=== PATIENT | male | born 1975 | race Hispanic/Latino ===

== ENCOUNTER 2021-04-14 12:43 | Inpatient (IN) | payer OTHER ==
[2021-04-14] MEDS ORDERED: THIAMINE 100 MG, FOLIC ACID 1 MG, MULTIPLE VITAMIN INJ, ADULT 10 ML in SODIUM CHLORIDE ... IV ONE (13:13)
--- NOTE | 2021-04-14 13:27 | Emergency Department Report ---
HPI - General Chief Complaint: Psych Time Seen by Provider: 04/14/21 12:54 - HPI HPI: 45-year-old male presents to the emergency department with complaint of depression, suicidal ideations and a suicide attempt. The patient says that he wrapped cellophane around his neck and tied it to something and jumped off with the intent of hanging himself but the cellophane broke. He complains only of very mild neck soreness. No change in voice, difficulty swallowing, shortness of breath. Patient also says that he is going through alcohol withdra wal. He has a history of alcohol dependence for the past 15 years. His last drink was yesterday. He complains of some nausea, tremors, agitation. He tried to quit one time previously but said that he had an alcohol withdrawal seizure at that time. ED Review of Systems ROS: Stated complaint: SUICIDAL ATTEMPT Other details as noted in HPI Comment: All other systems reviewed and negative Constitutional: denies: chills, fever Eyes: denies: eye pain, vision change ENT: denies: ear pain, throat pain Respiratory: denies: cough, shortness of breath Cardiovascular: denies: chest pain, palpitations Gastrointestinal: nausea. denies: abdominal pain Genitourinary: denies: dysuria, discharge Musculoskeletal: denies: back pain, arthralgia Skin: denies: rash, lesions Neurological: other (tremors). denies: headache Psychiatric: anxiety, depression, suicidal thoughts Physical Exam - Physical Exam Vital Signs: Vital Signs 04/14/21 13:10 Temperature 99.0 F Physical Exam: GENERAL: The patient is ill-appearing. The patient appears extremely anxious. HENT: Normocephalic. Atraumatic. Patient has moist mucous membranes. Oropharynx is clear. No hoarse or hot potato voice. EYES: Extraocular motions are intact. NECK: Supple. Trachea is midline. No ecchymosis or ligature mosley seen. CHEST/LUNGS: Clear to auscultation. There is no respiratory distress noted. HEART/CARDIOVASCULAR: Regular. There is mild tachycardia. There is no murmur. ABDOMEN: Abdomen is soft, nontender. Patient has normal bowel sounds. SKIN: Skin is warm and dry. NEURO: The patient is awake, alert, and oriented. The patient is cooperative. The patient has no focal neurologic deficits. Normal speech. Patient has moderate to severe bilateral upper extremity tremors. MUSCULOSKELETAL: There is no tenderness or deformity. There is no limitation range of motion. ED Course Vital Signs 04/14/21 13:10 Temperature 99.0 F ED Medical Decision Making - Lab Data Result diagrams: 04/14/21 12:58 12 12:58 Lab Results 04/14/21 12 12 Range/Units 12:58 12:58 12:58 WBC 6.2 (4.5-11.0) K/mm3 RBC 4.26 (3.65-5.03) M/mm3 Hgb 13.4 (11.8-15.2) gm/dl Hct 40.5 (35.5-45.6) % MCV 95 H (84-94) fl MCH 31 (28-32) pg MCHC 33 (32-34) % RDW 13.2 (13.2-15.2) % Plt Count 185 (140-440) K/mm3 Lymph % (Auto) 21.1 (13.4-35.0) % Martin % (Auto) 7.3 (0.0-7.3) % Eos % (Auto) 6.3 H (0.0-4.3) % Baso % (Auto) 0.8 (0.0-1.8) % Lymph # (Auto) 1.3 (1.2-5.4) K/mm3 Martin # (Auto) 0.5 (0.0-0.8) K/mm3 Eos # (Auto) 0.4 (0.0-0.4) K/mm3 Baso # (Auto) 0.1 (0.0-0.1) K/mm3 Seg Neutrophils % 64.5 (40.0-70.0) % Seg Neutrophils # 4.0 (1.8-7.7) K/mm3 Sodium 140 (137-145) mmol/L Potassium 4.1 (3.6-5.0) mmol/L Chloride 100.4 (98-107) mmol/L Carbon Dioxide 30 (22-30) mmol/L Anion Gap 14 mmol/L BUN 9 (9-20) mg/dL Creatinine 0.6 L (0.8-1.3) mg/dL Estimated GFR > 60 ml/min BUN/Creatinine Ratio 15 % Glucose 94 (75-100) mg/dL Calcium 8.8 (8.4-10.2) mg/dL Plasma/Serum Alcohol < 0.01 (0-0.07) % - Medical Decision Making This patient presents with suicidal ideations and an attempt in which he wrapped cellophane around his neck and tried to hang himself. However the cellophane broke. I do not see any significant ecchymosis or any ligature mosley around the neck. The patient does not have any drooling, trismus, change in voice. For this reason the patient has been made a 1013 and placed on an ED hold. The patient appears to be in alcohol withdrawal. He last drink anything yesterd ay. He has very high CIWA score in which the patient is supposed to get 4 mg of Ativan every 15 minutes per protocol and be placed in the ICU. Labs have thus far been unremarkable including CBC, metabolic panel and blood alcohol level. Patient was accepted for admission by the hospitalist, Dr. Mitchell. Critical Care Time: Yes Critical care time in (mins) excluding proc time.: 35 Critical care attestation.: If time is entered above; I have spent that time in minutes in the direct care of this critically ill patient, excluding procedure time. Critical care time was spent on this patient in doing his initial evaluation, multiple reevaluations, ordering and interpretation of labs, CIWA score with IV Ativan administration. Critical Care Time: 35 minutes ED Disposition Clinical Impression: Suicidal ideations, Suicide attempt by hanging, Delirium tremens Disposition: ADMITTED INPATIENT Is pt being admited?: Yes Condition: Serious Time of Disposition: 15:24
[2021-04-14] MEDS ORDERED: LORazepam 2 MG/ML VIAL IV PRN (13:35)
[2021-04-14] MEDS: LORazepam 2 MG/ML VIAL IV PRN ×4 (14:30→22:54)
[2021-04-14 14:52] LABS: Basophils # (Auto) 0.1 K/mm3 (0.0-0.1); Basophils % (Auto) 0.8 % (0.0-1.8); Eosinophils # (Auto) 0.4 K/mm3 (0.0-0.4); Eosinophils % (Auto) 6.3 % (0.0-4.3); Hematocrit 40.5 % (35.5-45.6); Hemoglobin 13.4 gm/dl (11.8-15.2); Lymphocytes # (Auto) 1.3 K/mm3 (1.2-5.4); Lymphocytes % (Auto) 21.1 % (13.4-35.0); Mean Corpuscular HGB Conc 33 % (32-34); Mean Corpuscular Volume 95 fl (84-94); Monocytes # (Auto) 0.5 K/mm3 (0.0-0.8); Monocytes % (Auto) 7.3 % (0.0-7.3); Platelet Count 185 K/mm3 (140-440); Red Blood Count 4.26 M/mm3 (3.65-5.03); Red Cell Distribution Width 13.2 % (13.2-15.2)
[2021-04-14 14:58] LABS: Blood Urea Nitrogen 9 mg/dL (9-20); Calcium 8.8 mg/dL (8.4-10.2); Hemolysis Index 4
[2021-04-14 15:00] LABS: BUN/Creatinine Ratio 15
--- NOTE | 2021-04-14 15:04 | History and Physical Report ---
History of Present Illness Chief complaint: I think you had a seizure and I tried to kill myself History of present illness: 45 YO Male with MDD, CASSANDRA, ETOH Dependence presents to ED for evaluation. Patient reports "I tried to kill myself and I think I had a seizure". Patient states that he attempted to hang himself this morning by wrapping cellophane around his neck and tied it to something and jumped off and attempt to take his own life. Patient also reports feeling as if he had a seizure Patient transported to [facility] via private vehicle for further care and evaluation of the aforementioned symptoms. The patient was seen and evaluated in the emergency department. All lab and imaging studies reviewed. The patient was found to be tremulous, with nausea, tangential thinking, and confabulation which is cons istent with alcohol withdrawal syndrome. Patient also found to have suicide attempt. Patient placed on 1013 and admitted to medical floor due to increased risk of worsening symptoms. Mental health team consulted in ED. CIWA protocol initiated in the emergency department. Patient denies fever, chills, chest pain, palpitation, productive cough, skin rash, recent contact, known exposure to COVID-19. No prior admission for review. No medication listed at time of admission for reconciliation. Advanced care planning conducted in ED. Mental health team consulted in ED. Past History Past Medical History: other (See HPI) Past Surgical History: No surgical history, Other (Reviewed) Social history: single, alcohol abuse. denies: smoking, prescription drug abuse Family history: hypertension Medications and Allergies Allergies Allergy/AdvReac Type Severity Reaction Status Date / Time haloperidol [From Haldol] Allergy Swelling Verified 04/14/21 12:50 hydroxyzine [From Vistaril] AdvReac Hives Verified 04/14/21 12:50 Active Meds: Active Medications Thiamine HCl 100 mg/ Folic Acid 1 mg/ Multivitamins/Minerals 10 ml/ Sodium Chloride 1,011.2 mls @ 250 mls/hr IV ONCE ONE Stop: 04/14/21 17:15 Last Admin: 04/14/21 14:43 Dose: 250 mls/hr Documented by: Lorazepam (Lorazepam 2 Mg/Ml Vial) 2 mg IV Q1HR PRN PRN Reason: CIWA-Ar 8-15 Lorazepam (Lorazepam 2 Mg/Ml Vial) 4 mg IV Q1HR PRN PRN Reason: CIWA-Ar 16-25 Last Admin: 04/14/21 14:30 Dose: 4 mg Documented by: Lorazepam (Lorazepam 2 Mg/Ml Vial) 4 mg IV Q15MIN PRN PRN Reason: CIWA-Ar >25 Last Admin: 04/14/21 14:53 Dose: 4 mg Documented by: Review of Systems Constitutional: no weight gain, no fever, no chills, no sweats Ears, nose, mouth and throat: no ear pain, no ear discharge, no decreased hearing, no nose pain, no nasal discharge, no sinus pressure Cardiovascular: no chest pain, no orthopnea, no palpitations, no edema, no syn cope Respiratory: no cough, no excessive sputum, no hemoptysis, no shortness of breath Gastrointestinal: no abdominal pain, no nausea, no diarrhea, no constipation, no change in bowel habits Genitourinary Male: no hematuria, no flank pain, no discharge, no urinary frequency, no urinary hesitancy Rectal: no pain, no incontinence, no bleeding Musculoskeletal: neck pain Integumentary: no rash, no pruritis, no redness, no sores, no wounds, no boils Neurological: no head injury, no transient paralysis, no weakness, no parath esias Psychiatric: anxiety, suicidal ideation, depression, hopelessness Endocrine: no cold intolerance, no heat intolerance, no polydipsia Hematologic/Lymphatic: no easy bruising, no easy bleeding, no lymphadenopathy, no lymphedema Allergic/Immunologic: no urticaria, no allergic rhinitis, no wheezing, no anaphylaxis, no angioedema Exam - Constitutional Vitals: Temp Pulse Resp BP Pulse Ox 98.6 F 84 28 H 132/78 94 04/14/21 13:39 04/14/21 14:30 04/14/21 14:30 04/14/21 14:30 04/14/21 14:30 General appearance: Present: mild distress - EENT Eyes: Present: PERRL ENT: hearing intact, clear oral mucosa - Neck Neck: Present: supple, normal ROM - Respiratory Respiratory effort: normal Respiratory: bilateral: CTA - Cardiovascular Heart Sounds: Present: S1 & S2. Absent: rub, click - Extremities Extremities: pulses symmetrical, No edema Peripheral Pulses: within normal limits - Abdominal General gastrointestinal: Present: soft, non-tender, non-distended, normal bowel sounds Male genitourinary: Present: normal - Integumentary Integumentary: Present: clear, warm, dry - Musculoskeletal Musculoskeletal: gait normal, strength equal bilaterally - Psychiatric Psychiatric: appropriate mood/affect, intact judgment & insight - Neurologic Neurologic: CNII-XII intact, moves all extremities Results - Labs CBC & Chem 7: 04/14/21 12:58 12 12:58 Labs: Abnormal lab results 04/14/21 04/14/21 Range/Units 12:58 12:58 MCV 95 H (84-94) fl Eos % (Auto) 6.3 H (0.0-4.3) % Creatinine 0.6 L (0.8-1.3) mg/dL Assessment and Plan - Patient Problems (1) Alcohol withdrawal syndrome, with delirium Current Visit: Yes Status: Acute Plan to address problem: [facility] protocol: Thiamine, folic acid, multivitamin daily, banana bag, (2) Suicide attempt by hanging Current Visit: Yes Status: Acute Qualifiers: Encounter type: initial encounter Qualified Code(s): T71.162A - Asphyxiation due to hanging, intentional self-harm, initial encounter Plan to address problem: Supportive care, [address], mental health consult placed. (3) Major depression Current Visit: Yes Status: Acute Plan to address problem: Mental health team consulted. Supportive care, behavior change counseling, (4) Generalized anxiety disorder Current Visit: Yes Status: Acute Plan to address problem: Benzodiazepine therapy as clinically indicated, supportive care. Mental health team consulted. (5) DVT prophylaxis Current Visit: Yes Status: Acute Plan to address problem: SCDs bilateral lower extremities while in bed, patient is ambulatory (6) Advance care planning Current Visit: Yes Status: Acute Plan to address problem: Disease education conducted, care plan discussed, diagnoses discussed, prognosis discussed, patient is full code. Care plan discussed. +30 minutes.
[2021-04-14 15:40] LABS: Bacteria,Urine 1+ /HPF (Negative); Bilirubin,Urine NEG (Negative); Blood,Urine NEG (Negative); Color,Urine Yellow (Yellow); Protein,Urine <15 mg/dL mg/dL (Negative)
[2021-04-14 15:47] LABS: Amphetamine Screen,Urine Negative; Cannabinoid Screen,Urine Negative; Cocaine Screen,Urine Negative; Methadone Screen,Urine Negative; Opiate Screen,Urine Negative
[2021-04-14] MEDS ORDERED: ALBUTEROL 2.5 MG/3 ML NEBU IH PRN (16:00)
[2021-04-14] MEDS ORDERED: oxyCODONE /ACETAMINOPHEN 5-325MG TAB PO PRN (16:00)
[2021-04-14] MEDS ORDERED: HYDROmorphone 1 MG/1 ML INJ IV PRN (16:00)
[2021-04-14] MEDS ORDERED: ONDANSETRON 4 MG/2 ML INJ IV PRN (16:00)
[2021-04-14] MEDS ORDERED: ACETAMINOPHEN 325 MG TAB PO PRN (16:00)
[2021-04-14 16:01] LABS: Benzodiazepines Screen,Urine Positive
[2021-04-15] MEDS: LORazepam 2 MG/ML VIAL IV PRN ×7 (02:36→20:13)
--- NOTE | 2021-04-15 08:04 | Progress Note ---
Assessment and Plan Assessment and plan: 45 YO Male with MDD, CASSANDRA, ETOH Dependence presents to ED for evaluation. Patient reports "I tried to kill myself and I think I had a seizure". Patient states that he attempted to hang himself this morning by wrapping cellophane around his neck and tied it to something and jumped off and attempt to take his own life. Patient also reports feeling as if he had a seizure Patient transported to [facility] via private vehicle for further care and evaluation of the aforementioned symptoms. The patient was seen and evaluated in the emergency department. All lab and imaging studies reviewed. The patient was found to be tremulous, with nausea, tangential thinking, and confabulation which is consistent with alcohol withdrawal syndrome. Patient also found to have suicide attempt. Patient placed on 1013 and admitted to medical floor due to increased risk of worsening symptoms. Mental health team consulted in ED. CIWA protocol initiated in the emergency department. Patient denies fever, chills, chest pain, palpitation, productive cough, skin rash, recent contact, known exposure to COVID-19. No prior admission for review. No medication listed at time of admission for reconciliation. Advanced care planning conducted in ED. Mental health team consulted in ED. (1) Alcohol withdrawal syndrome, with delirium Current Visit: Yes Status: Acute Plan to address problem: CIWA protocol: Thiamine, folic acid, multivitamin daily, banana bag, (2) Suicide attempt by hanging Current Visit: Yes Status: Acute Qualifiers: Encounter type: initial encounter Qualified Code(s): T71.162A - Asphyxiation due to hanging, intentional self-harm, initial encounter Plan to address problem: Supportive care, [address], mental health consult placed. (3) Major depression Current Visit: Yes Status: Acute Plan to address problem: Mental health team consulted. Supportive care, behavior change counseling, (4) Generalized anxiety disorder Current Visit: Yes Status: Acute Plan to address problem: Benzodiazepine therapy as clinically indicated, supportive care. Mental health team consulted. (5) DVT prophylaxis Current Visit: Yes Status: Acute Plan to address problem: SCDs bilateral lower extremities while in bed, patient is ambulatory (6) Advance care planning Current Visit: Yes Status: Acute Plan to address problem: Disease education conducted, care plan discussed, diagnoses discussed, prognosis discussed, patient is full code. Care plan discussed. +30 minutes. 04/15: Continue supportive care obtain PSYCH AND NEURO CONSULT, monitor for benzo withdrawal continue 1013 until evaluated by psych, will also check a TSH and a free T4 will defer imaging studies to neurologist. History Interval history: Patient seen and examined remains lethargic still with some tremors in the right upper extremity although rhythmic Hospitalist Physical - Physical exam Narrative exam: General appearance: Present: No acute distress sitting up. Mild rhythmic consistent movement of the thumb - EENT Eyes: Present: PERRL ENT: hearing intact, clear oral mucosa - Neck Neck: Present: supple, normal ROM - Respiratory Respiratory effort: normal Respiratory: bilateral: CTA - Cardiovascular Heart Sounds: Present: S1 & S2. Absent: rub, click - Extremities Extremities: pulses symmetrical, No edema Peripheral Pulses: within normal limits - Abdominal General gastrointestinal: Present: soft, non-tender, non-distended, normal bowel sounds Male genitourinary: Present: normal - Integumentary Integumentary: Present: clear, warm, dry - Musculoskeletal Musculoskeletal: gait normal, strength equal bilaterally - Psychiatric Psychiatric: appropriate mood/affect, intact judgment & insight - Neurologic Neurologic: CNII-XII intact, moves all extremities - Constitutional Vitals: Temp Pulse Resp BP Pulse Ox 99.2 F 79 19 119/65 90 04/15/21 05:13 04/15/21 05:13 04/15/21 05:13 04/15/21 05:13 04/15/21 05:13 General appearance: Present: mild distress Results - Labs CBC & Chem 7: 04/14/21 12:58 04/14/21 12:58 Labs: Laboratory Last Values WBC 6.2 K/mm3 (4.5-11.0) 04/14/21 12:58 RBC 4.26 M/mm3 (3.65-5.03) 04/14/21 12:58 Hgb 13.4 gm/dl (11.8-15.2) 04/14/21 12:58 Hct 40.5 % (35.5-45.6) 04/14/21 12:58 MCV 95 fl (84-94) H 04/14/21 12:58 MCH 31 pg (28-32) 04/14/21 12:58 MCHC 33 % (32-34) 04/14/21 12:58 RDW 13.2 % (13.2-15.2) 04/14/21 12:58 Plt Count 185 K/mm3 (140-440) 04/14/21 12:58 Lymph % (Auto) 21.1 % (13.4-35.0) 04/14/21 12:58 Glynn % (Auto) 7.3 % (0.0-7.3) 04/14/21 12:58 Eos % (Auto) 6.3 % (0.0-4.3) H 04/14/21 12:58 Baso % (Auto) 0.8 % (0.0-1.8) 04/14/21 12:58 Lymph # (Auto) 1.3 K/mm3 (1.2-5.4) 04/14/21 12:58 Glynn # (Auto) 0.5 K/mm3 (0.0-0.8) 04/14/21 12:58 Eos # (Auto) 0.4 K/mm3 (0.0-0.4) 04/14/21 12:58 Baso # (Auto) 0.1 K/mm3 (0.0-0.1) 04/14/21 12:58 Seg Neutrophils % 64.5 % (40.0-70.0) 04/14/21 12:58 Seg Neutrophils # 4.0 K/mm3 (1.8-7.7) 04/14/21 12:58 Sodium 140 mmol/L (137-145) 04/14/21 12:58 Potassium 4.1 mmol/L (3.6-5.0) 04/14/21 12:58 Chloride 100.4 mmol/L (98-107) 04/14/21 12:58 Carbon Dioxide 30 mmol/L (22-30) 04/14/21 12:58 Anion Gap 14 mmol/L 04/14/21 12:58 BUN 9 mg/dL (9-20) 04/14/21 12:58 Creatinine 0.6 mg/dL (0.8-1.3) L 04/14/21 12:58 Estimated GFR > 60 ml/min 04/14/21 12:58 BUN/Creatinine Ratio 15 % 04/14/21 12:58 Glucose 94 mg/dL (75-100) 04/14/21 12:58 Calcium 8.8 mg/dL (8.4-10.2) 04/14/21 12:58 Urine Color Yellow (Yellow) 04/14/21 Unknown Urine Turbidity Clear (Clear) 04/14/21 Unknown Urine pH 6.0 (5.0-7.0) 04/14/21 Unknown Ur Specific [place] 1.014 (1.003-1.030) 04/14/21 Unknown Urine Protein <15 mg/dl mg/dL (Negative) 04/14/21 Unknown Urine Glucose (UA) Neg mg/dL (Negative) 04/14/21 Unknown Urine Ketones Neg mg/dL (Negative) 04/14/21 Unknown Urine Blood Neg (Negative) 04/14/21 Unknown Urine Nitrite Neg (Negative) 04/14/21 Unknown Urine Bilirubin Neg (Negative) 04/14/21 Unknown Urine Urobilinogen 4.0 mg/dL (<2.0) 04/14/21 Unknown Ur Leukocyte Esterase Neg (Negative) 04/14/21 Unknown Urine WBC (Auto) 1.0 /HPF (0.0-6.0) 04/14/21 Unknown Urine RBC (Auto) 1.0 /HPF (0.0-6.0) 04/14/21 Unknown U Epithel Cells (Auto) < 1.0 /HPF (0-13.0) 04/14/21 Unknown Urine Bacteria (Auto) 1+ /HPF (Negative) 04/14/21 Unknown Urine Opiates Screen Negative 04/14/21 Unknown Urine Methadone Screen Negative 04/14/21 Unknown Ur Barbiturates Screen Negative 04/14/21 Unknown Ur Phencyclidine Scrn Negative 04/14/21 Unknown Ur Amphetamines Screen Negative 04/14/21 Unknown U Benzodiazepines Scrn Positive 04/14/21 Unknown Urine Cocaine Screen Negative 04/14/21 Unknown U Marijuana (THC) Screen Negative 04/14/21 Unknown Drugs of Abuse Note Disclamer 04/14/21 Unknown Plasma/Serum Alcohol < 0.01 % (0-0.07) 04/14/21 12:58 Mullins/IV: Voiding Method Toilet Active Medications - Current Medications Current Medications: Generic Name Dose Route Start Last Admin Trade Name Freq PRN Reason Stop Dose Admin Acetaminophen 650 mg 04/14/21 16:00 Acetaminophen 325 Mg Tab PO Q4H PRN Pain MILD(1-3)/Fever >100.5/KRAUSE Albuterol 2.5 mg 04/14/21 16:00 Albuterol 2.5 Mg/3 Ml Nebu IH Q4HRT PRN Shortness Of Breath Folic Acid 1 mg 04/15/21 10:00 Folic Acid 1 Mg Tab PO QDAY CATHIE Hydromorphone HCl 0.5 mg 04/14/21 16:00 Hydromorphone 1 Mg/1 Ml Inj IV Q23H PRN Pain , Severe (7-10) Lorazepam 2 mg 04/14/21 13:13 04/15/21 02:36 Lorazepam 2 Mg/Ml Vial IV 2 mg Q1HR PRN Administration CIWA-Ar 8-15 Lorazepam 4 mg 04/14/21 13:13 04/14/21 22:54 Lorazepam 2 Mg/Ml Vial IV 4 mg Q1HR PRN Administration CIWA-Ar 16-25 Lorazepam 4 mg 04/14/21 13:35 04/14/21 14:53 Lorazepam 2 Mg/Ml Vial IV 4 mg Q15MIN PRN Administration CIWA-Ar >25 Multivitamins 1 each 04/15/21 10:00 Multivitamins ,Therapeutic Tab PO QDAY [facility] Ondansetron HCl 4 mg 04/14/21 16:00 Ondansetron 4 Mg/2 Ml Inj IV Q8H PRN Nausea And Vomiting Oxycodone/Acetaminophen 1 tab 04/14/21 16:00 Oxycodone /Acetaminophen 5-325mg Tab PO Q16H PRN Pain, Moderate (4-6) Sodium Chloride 10 ml 04/14/21 22:00 04/14/21 22:56 Sodium Chloride 0.9% 10 Ml Flush Syringe IV 10 ml BID CATHIE Administration Sodium Chloride 10 ml 04/14/21 16:00 Sodium Chloride 0.9% 10 Ml Flush Syringe IV PRN PRN LINE FLUSH Thiamine HCl 100 mg 04/15/21 10:00 Thiamine 100 Mg Tab PO QDAY CATHIE
[2021-04-15] MEDS: FOLIC ACID 1 MG TAB PO SCH ×2 (08:31→15:21)
[2021-04-15] MEDS: THIAMINE 100 MG TAB PO SCH ×2 (08:31→15:22)
[2021-04-15] MEDS: MULTIVITAMINS ,THERAPEUTIC TAB PO SCH ×2 (08:31→15:21)
--- NOTE | 2021-04-15 11:51 | Consultation ---
History of Present Illness - Reason for Consult Consult date: 04/15/21 Reason for consult: SI, depression, alcohol - History of Present Psychiatric Illness Rojas Jackman is a 45y/o male patient who states that he attempted to hang himself, but was stopped by his friend. A sitter is at bedside. The patient says he is severely depressed, drinks a gallon of budweiser and a 5th of liquor daily. He says his only sister and support system was killed a few months ago and he h asn't stopped drinking. The patient is tearful during the visit. He says he's having withdrawals. The patient says "I'm shaking and seeing things over the wall and feel them crawling all over me." The patient also states he has an opiate dependence. He denies any illicit drug use. PAST PSYCHIATRIC HISTORY: Diagnoses: Bipolar Suicide attempts or Self-harm behavior: Denies Prior psychiatric hospitalizations: Denies Substance Abuse history: Alcohol Previous psychiatric medications tried: cymbalta, neurontin, trazodone Outpatient treatment: Denies PAST MEDICAL HISTORY: None reported or document Family Psychiatric History: None reported or documented SOCIAL HISTORY Marital Status: Single Living Arrangements: with a friend Employment Status: Unemployed Access to guns/weapons: Denies Education: History of Abuse: Denies Legal History: Denies REVIEW OF SYSTEMS Constitutional: Negative for weight loss ENT: Negative for stridor Respiratory: Negative for cough or hemoptysis All other systems reviewed and are negative MENTAL STATUS EXAMINATION General Appearance and Behavior: Age appropriate, good hygiene, wearing appropriate clothes. calm, cooperative Cooperation: cooperative Psychomotor Behavior: Psychomotor normal Mood: Severely Depressed Affect and affective range: congruent with stated mood, tearful Thought Process: goal directed Thought Content: depression, SI, hallucinations Speech: normal tone and pace Suicidal Ideation: Yes Homicidal Ideation: Denies Hallucinations: A/V Delusions: None elicited Impulse Control: Limited Insight and Judgment: Limited Memory: limited Attention: Attentive Orientation: alert and oriented Assessment and Plan (1) Bipolar Disorder (2) Alcohol Dependence Treatment Plan 1013 Restarted home meds Start Abilify 5mg po daily Agree with CIWA Sitter: per primary Medical: per medical Disposition: Recommend acute psychiatric inpatient treatment Will follow. Thanks Case staffed with Dr. Gonzalez Medications and Allergies Allergies Allergy/AdvReac Type Severity Reaction Status Date / Time haloperidol [From Haldol] Allergy Swelling Verified 04/14/21 12:50 hydroxyzine [From Vistaril] AdvReac Hives Verified 04/14/21 12:50 Home Medications Medication Instructions Recorded Confirmed Last Taken Type Atorvastatin (Nf) 100 mg HS 04/15/21 04/15/21 Unknown History Duloxetine HCl [Cymbalta] 60 mg PO 04/15/21 04/14/21 09:00 History buprenorphine hcl [Subutex] 8 mg BID 04/15/21 04/15/21 04/12/21 History Active Meds: Active Medications Acetaminophen (Acetaminophen 325 Mg Tab) 650 mg PO Q4H PRN PRN Reason: Pain MILD(1-3)/Fever >100.5/KRAUSE Albuterol (Albuterol 2.5 Mg/3 Ml Nebu) 2.5 mg IH Q4HRT PRN PRN Reason: Shortness Of Breath Folic Acid (Folic Acid 1 Mg Tab) 1 mg PO QDAY [facility] Last Admin: 04/15/21 08:31 Dose: 1 mg Documented by: Hydromorphone HCl (Hydromorphone 1 Mg/1 Ml Inj) 0.5 mg IV Q23H PRN PRN Reason: Pain , Severe (7-10) Lorazepam (Lorazepam 2 Mg/Ml Vial) 2 mg IV Q1HR PRN PRN Reason: CIWA-Ar 8-15 Last Admin: 04/15/21 08:31 Dose: 2 mg Documented by: Lorazepam (Lorazepam 2 Mg/Ml Vial) 4 mg IV Q1HR PRN PRN Reason: CIWA-Ar 16-25 Last Admin: 04/15/21 10:37 Dose: 4 mg Documented by: Lorazepam (Lorazepam 2 Mg/Ml Vial) 4 mg IV Q15MIN PRN PRN Reason: CIWA-Ar >25 Last Admin: 04/14/21 14:53 Dose: 4 mg Documented by: Multivitamins (Multivitamins ,Therapeutic Tab) 1 each PO QDAY [facility] Last Admin: 04/15/21 08:31 Dose: 1 each Documented by: Ondansetron HCl (Ondansetron 4 Mg/2 Ml Inj) 4 mg IV Q8H PRN PRN Reason: Nausea And Vomiting Oxycodone/Acetaminophen (Oxycodone /Acetaminophen 5-325mg Tab) 1 tab PO Q16H PRN PRN Reason: Pain, Moderate (4-6) Sodium Chloride (Sodium Chloride 0.9% 10 Ml Flush Syringe) 10 ml IV BID [facility] Last Admin: 04/14/21 22:56 Dose: 10 ml Documented by: Sodium Chloride (Sodium Chloride 0.9% 10 Ml Flush Syringe) 10 ml IV PRN PRN PRN Reason: LINE FLUSH Thiamine HCl (Thiamine 100 Mg Tab) 100 mg PO QDAY [facility] Last Admin: 04/15/21 08:31 Dose: 100 mg Documented by: Mental Status Exam - Vital signs Last Vital Signs Temp 99.2 F 04/15/21 05:13 Pulse 79 04/15/21 05:13 Resp 19 04/15/21 05:13 BP 119/65 04/15/21 05:13 Pulse Ox 90 04/15/21 05:13 Results Result Diagrams: 04/14/21 12:58 04/14/21 12:58 Abnormal lab results 04/14/21 04/14/21 Range/Units 12:58 12:58 MCV 95 H (84-94) fl Eos % (Auto) 6.3 H (0.0-4.3) % Creatinine 0.6 L (0.8-1.3) mg/dL All other labs normal.
[2021-04-15] MEDS ORDERED: NON-FORMULARY EACH (Duloxetine Hcl [Cymbalta] 60 MG Capsule.Dr) PO SCH (12:00)
[2021-04-15] MEDS ORDERED: ZIPRASIDONE MESYLATE 20 MG VIAL IM ONE (12:45)
[2021-04-15] MEDS: DULoxetine 30 MG CAP PO SCH (13:06)
[2021-04-15] MEDS: GABAPENTIN 300 MG CAP PO SCH ×2 (13:06→20:14)
[2021-04-15] MEDS: ARIPiprazole 5 MG TAB PO SCH (13:06)
--- NOTE | 2021-04-15 15:44 | Consultation ---
History of Present Illness Consult date: 04/15/21 Chief complaint: Seizure History of present illness: 45 YO Male with MDD, CASSANDRA, ETOH Dependence presents to ED for evaluation. Patient reports "I tried to kill myself and I think I had a seizure". Patient states that he attempted to hang himself this morning by wrapping cellophane around his neck and tied it to something and jumped off and attempt to take his own life. Patient also reports feeling as if he had a seizure Patient transpor quinn to [facility] via private vehicle for further care and evaluation of the aforementioned symptoms. The patient was seen and evaluated in the emergency department. All lab and imaging studies reviewed. The patient was found to be tremulous, with nausea, tangential thinking, and confabulation which is consistent with alcohol withdrawal syndrome. Patient also found to have suicide attempt. Patient placed on 1013 and admitted to medical floor due to increased risk of worsening symptoms. Mental health team consulted in ED. CIWA protocol initiated in the emergency department. Patient denies fever, chills, chest pain, palpitation, productive cough, skin rash, recent contact, known exposure to COVID-19. No prior admission for review. No medication listed at time of admission for reconciliation. Advanced care planning conducted in ED. Mental health team consulted in ED. The patient reports Seizure- daily there is associated with alchohol. Past History Past Medical History: other (See HPI) Past Surgical History: No surgical history, Other (Reviewed) Social history: single, alcohol abuse. denies: smoking, prescription drug abuse Family history: hypertension Medications and Allergies Allergies Allergy/AdvReac Type Severity Reaction Status Date / Time haloperidol [From Haldol] Allergy Swelling Verified 04/14/21 12:50 hydroxyzine [From Vistaril] AdvReac Hives Verified 04/14/21 12:50 Home Medications Medication Instructions Recorded Confirmed Last Taken Type Atorvastatin (Nf) 100 mg HS 04/15/21 04/15/21 Unknown History Duloxetine HCl [Cymbalta] 60 mg PO 04/15/21 04/14/21 09:00 History buprenorphine hcl [Subutex] 8 mg BID 04/15/21 04/15/21 04/12/21 History Active Meds: Active Medications Acetaminophen (Acetaminophen 325 Mg Tab) 650 mg PO Q4H PRN PRN Reason: Pain MILD(1-3)/Fever >100.5/KRAUSE Albuterol (Albuterol 2.5 Mg/3 Ml Nebu) 2.5 mg IH Q4HRT PRN PRN Reason: Shortness Of Breath Aripiprazole (Aripiprazole 5 Mg Tab) 5 mg PO QDAY [facility] Last Admin: 04/15/21 13:06 Dose: 5 mg Documented by: Chlordiazepoxide HCl (Chlordiazepoxide 5 Mg Cap) 10 mg PO Q6H PRN PRN Reason: Anxiety Last Admin: 04/15/21 14:01 Dose: 10 mg Documented by: Duloxetine HCl (Duloxetine 30 Mg Cap) 60 mg PO QDAY [facility] Last Admin: 04/15/21 13:06 Dose: 60 mg Documented by: Folic Acid (Folic Acid 1 Mg Tab) 1 mg PO QDAY [facility] Last Admin: 04/15/21 15:21 Dose: Not Given Documented by: Gabapentin (Gabapentin 300 Mg Cap) 300 mg PO TID [facility] Last Admin: 04/15/21 13:06 Dose: 300 mg Documented by: Hydromorphone HCl (Hydromorphone 1 Mg/1 Ml Inj) 0.5 mg IV Q23H PRN PRN Reason: Pain , Severe (7-10) Lorazepam (Lorazepam 2 Mg/Ml Vial) 2 mg IV Q1HR PRN PRN Reason: CIWA-Ar 8-15 Last Admin: 04/15/21 08:31 Dose: 2 mg Documented by: Lorazepam (Lorazepam 2 Mg/Ml Vial) 4 mg IV Q1HR PRN PRN Reason: CIWA-Ar 16-25 Last Admin: 04/15/21 12:06 Dose: 4 mg Documented by: Lorazepam (Lorazepam 2 Mg/Ml Vial) 4 mg IV Q15MIN PRN PRN Reason: CIWA-Ar >25 Last Admin: 04/14/21 14:53 Dose: 4 mg Documented by: Multivitamins (Multivitamins ,Therapeutic Tab) 1 each PO QDAY [facility] Last Admin: 04/15/21 15:21 Dose: Not Given Documented by: Ondansetron HCl (Ondansetron 4 Mg/2 Ml Inj) 4 mg IV Q8H PRN PRN Reason: Nausea And Vomiting Oxycodone/Acetaminophen (Oxycodone /Acetaminophen 5-325mg Tab) 1 tab PO Q16H PRN PRN Reason: Pain, Moderate (4-6) Sodium Chloride (Sodium Chloride 0.9% 10 Ml Flush Syringe) 10 ml IV BID [facility] Last Admin: 04/15/21 10:00 Dose: 10 ml Documented by: Sodium Chloride (Sodium Chloride 0.9% 10 Ml Flush Syringe) 10 ml IV PRN PRN PRN Reason: LINE FLUSH Thiamine HCl (Thiamine 100 Mg Tab) 100 mg PO QDAY [facility] Last Admin: 04/15/21 15:22 Dose: Not Given Documented by: Trazodone HCl (Trazodone 50 Mg Tab) 150 mg PO QHS [facility] Physical Examination - Vital Signs Vital Signs: Vital Signs Temp 99.0 F 04/14/21 13:10 - Physical Exam Narrative exam: The patient is alert . Per Nurse moves all 4 extremity. Results - Laboratory Findings CBC and BMP: 04/14/21 12:58 04/14/21 12:58 Abnormal Lab Findings: Abnormal Labs 04/14/21 04/14/21 12:58 12:58 MCV 95 H Eos % (Auto) 6.3 H Creatinine 0.6 L Assessment and Plan 1. Seizure- Alchohol Withdrawal - No Seizure Medication Recommedned . 2. While in Hospital EEG is recommeded . 3. Treatment for Alchohol Withdrawal Seizures - mainly - abstinence of alchohol and managing the symptoms in hospital . 4. Call Back with Questions . Dr. Munoz
[2021-04-15] MEDS: traZODone 50 MG TAB PO SCH (21:39)
[2021-04-16] MEDS: LORazepam 2 MG/ML VIAL IV PRN ×3 (00:14→13:01)
--- NOTE | 2021-04-16 07:39 | Progress Note ---
Assessment and Plan Assessment and plan: 45 YO Male with MDD, CASSANDRA, ETOH Dependence presents to ED for evaluation. Patient reports "I tried to kill myself and I think I had a seizure". Patient states that he attempted to hang himself this morning by wrapping cellophane around his neck and tied it to something and jumped off and attempt to take his own life. Patient also reports feeling as if he had a seizure Patient transported to [facility] via private vehicle for further care and evaluation of the aforementioned symptoms. The patient was seen and evaluated in the emergency department. All lab and imaging studies reviewed. The patient was found to be tremulous, with nausea, tangential thinking, and confabulation which is consistent with alcohol withdrawal syndrome. Patient also found to have suicide attempt. Patient placed on 1013 and admitted to medical floor due to increased risk of worsening symptoms. Mental health team consulted in ED. CIWA protocol initiated in the emergency department. Patient denies fever, chills, chest pain, palpitation, productive cough, skin rash, recent contact, known exposure to COVID-19. No prior admission for review. No medication listed at time of admission for reconciliation. Advanced care planning conducted in ED. Mental health team consulted in ED. (1) Alcohol withdrawal syndrome, with delirium Current Visit: Yes Status: Acute Plan to address problem: CIWA protocol: Thiamine, folic acid, multivitamin daily, banana bag, (2) Suicide attempt by hanging Current Visit: Yes Status: Acute Qualifiers: Encounter type: initial encounter Qualified Code(s): T71.162A - Asphyxiation due to hanging, intentional self-harm, initial encounter Plan to address problem: Supportive care, [address], mental health consult placed. (3) Major depression Current Visit: Yes Status: Acute Plan to address problem: Mental health team consulted. Supportive care, behavior change counseling, (4) Generalized anxiety disorder Current Visit: Yes Status: Acute Plan to address problem: Benzodiazepine therapy as clinically indicated, supportive care. Mental health team consulted. (5) DVT prophylaxis Current Visit: Yes Status: Acute Plan to address problem: SCDs bilateral lower extremities while in bed, patient is ambulatory (6) Advance care planning Current Visit: Yes Status: Acute Plan to address problem: Disease education conducted, care plan discussed, diagnoses discussed, prognosis discussed, patient is full code. Care plan discussed. +30 minutes. 04/15: Continue supportive care obtain PSYCH AND NEURO CONSULT, monitor for benzo withdrawal continue 1013 until evaluated by psych, will also check a TSH and a free T4 will defer imaging studies to neurologist. 04/16: Patient seen and examined resting comfortably no further seizure activity noted electrolytes are intact and in place Patient seen by Leonila recommeded inpatient leonila treatement patient seen by Neurology, no Seizure meds recommended for etoh induced seizure Patient had uneventful night and is cleared for Discharge to inpatient Psych when Bed is available History Interval history: Patient seen and examined more awake non-lethargic requested to be switched back to his Suboxone Hospitalist Physical - Physical exam Narrative exam: General appearance: Present: No acute distress sitting up. Mild rhythmic consistent movement of the thumb - EENT Eyes: Present: PERRL ENT: hearing intact, clear oral mucosa - Neck Neck: Present: supple, normal ROM - Respiratory Respiratory effort: normal Respiratory: bilateral: CTA - Cardiovascular Heart Sounds: Present: S1 & S2. Absent: rub, click - Extremities Extremities: pulses symmetrical, No edema Peripheral Pulses: within normal limits - Abdominal General gastrointestinal: Present: soft, non-tender, non-distended, normal bowel sounds Male genitourinary: Present: normal - Integumentary Integumentary: Present: clear, warm, dry - Musculoskeletal Musculoskeletal: gait normal, strength equal bilaterally - Psychiatric Psychiatric: appropriate mood/affect, intact judgment & insight - Neurologic Neurologic: CNII-XII intact, moves all extremities - Constitutional Vitals: Temp Pulse Resp BP Pulse Ox 97.9 F 84 15 123/81 94 04/16/21 03:34 04/16/21 03:36 04/16/21 03:36 04/16/21 03:34 04/16/21 03:36 General appearance: Present: mild distress Results - Labs CBC & Chem 7: 04/14/21 12:58 04/14/21 12:58 Labs: Laboratory Last Values WBC 6.2 K/mm3 (4.5-11.0) 04/14/21 12:58 RBC 4.26 M/mm3 (3.65-5.03) 04/14/21 12:58 Hgb 13.4 gm/dl (11.8-15.2) 04/14/21 12:58 Hct 40.5 % (35.5-45.6) 04/14/21 12:58 MCV 95 fl (84-94) H 04/14/21 12:58 MCH 31 pg (28-32) 04/14/21 12:58 MCHC 33 % (32-34) 04/14/21 12:58 RDW 13.2 % (13.2-15.2) 04/14/21 12:58 Plt Count 185 K/mm3 (140-440) 04/14/21 12:58 Lymph % (Auto) 21.1 % (13.4-35.0) 04/14/21 12:58 Emanuel % (Auto) 7.3 % (0.0-7.3) 04/14/21 12:58 Eos % (Auto) 6.3 % (0.0-4.3) H 04/14/21 12:58 Baso % (Auto) 0.8 % (0.0-1.8) 04/14/21 12:58 Lymph # (Auto) 1.3 K/mm3 (1.2-5.4) 04/14/21 12:58 Emanuel # (Auto) 0.5 K/mm3 (0.0-0.8) 04/14/21 12:58 Eos # (Auto) 0.4 K/mm3 (0.0-0.4) 04/14/21 12:58 Baso # (Auto) 0.1 K/mm3 (0.0-0.1) 04/14/21 12:58 Seg Neutrophils % 64.5 % (40.0-70.0) 04/14/21 12:58 Seg Neutrophils # 4.0 K/mm3 (1.8-7.7) 04/14/21 12:58 Sodium 140 mmol/L (137-145) 04/14/21 12:58 Potassium 4.1 mmol/L (3.6-5.0) 04/14/21 12:58 Chloride 100.4 mmol/L (98-107) 04/14/21 12:58 Carbon Dioxide 30 mmol/L (22-30) 04/14/21 12:58 Anion Gap 14 mmol/L 04/14/21 12:58 BUN 9 mg/dL (9-20) 04/14/21 12:58 Creatinine 0.6 mg/dL (0.8-1.3) L 04/14/21 12:58 Estimated GFR > 60 ml/min 12 12:58 BUN/Creatinine Ratio 15 % 04/14/21 12:58 Glucose 94 mg/dL (75-100) 04/14/21 12:58 Calcium 8.8 mg/dL (8.4-10.2) 04/14/21 12:58 TSH 2.550 mlU/mL (0.270-4.200) 04/16/21 05:32 Free T4 1.16 ng/dL (0.76-1.46) 04/16/21 05:32 Urine Color Yellow (Yellow) 04/14/21 Unknown Urine Turbidity Clear (Clear) 04/14/21 Unknown Urine pH 6.0 (5.0-7.0) 04/14/21 Unknown Ur Specific [place] 1.014 (1.003-1.030) 04/14/21 Unknown Urine Protein <15 mg/dl mg/dL (Negative) 04/14/21 Unknown Urine Glucose (UA) Neg mg/dL (Negative) 04/14/21 Unknown Urine Ketones Neg mg/dL (Negative) 04/14/21 Unknown Urine Blood Neg (Negative) 04/14/21 Unknown Urine Nitrite Neg (Negative) 04/14/21 Unknown Urine Bilirubin Neg (Negative) 04/14/21 Unknown Urine Urobilinogen 4.0 mg/dL (<2.0) 04/14/21 Unknown Ur Leukocyte Esterase Neg (Negative) 04/14/21 Unknown Urine WBC (Auto) 1.0 /HPF (0.0-6.0) 04/14/21 Unknown Urine RBC (Auto) 1.0 /HPF (0.0-6.0) 04/14/21 Unknown U Epithel Cells (Auto) < 1.0 /HPF (0-13.0) 04/14/21 Unknown Urine Bacteria (Auto) 1+ /HPF (Negative) 04/14/21 Unknown Urine Opiates Screen Negative 04/14/21 Unknown Urine Methadone Screen Negative 04/14/21 Unknown Ur Barbiturates Screen Negative 04/14/21 Unknown Ur Phencyclidine Scrn Negative 04/14/21 Unknown Ur Amphetamines Screen Negative 04/14/21 Unknown U Benzodiazepines Scrn Positive 04/14/21 Unknown Urine Cocaine Screen Negative 04/14/21 Unknown U Marijuana (THC) Screen Negative 04/14/21 Unknown Drugs of Abuse Note Disclamer 04/14/21 Unknown Plasma/Serum Alcohol < 0.01 % (0-0.07) 04/14/21 12:58 Mullins/IV: Voiding Method Toilet Active Medications - Current Medications Current Medications: Generic Name Dose Route Start Last Admin Trade Name Freq PRN Reason Stop Dose Admin Acetaminophen 650 mg 04/14/21 16:00 Acetaminophen 325 Mg Tab PO Q4H PRN Pain MILD(1-3)/Fever >100.5/KRAUSE Albuterol 2.5 mg 04/14/21 16:00 Albuterol 2.5 Mg/3 Ml Nebu IH Q4HRT PRN Shortness Of Breath Aripiprazole 5 mg 04/15/21 12:00 04/15/21 13:06 Aripiprazole 5 Mg Tab PO 5 mg QDAY CATHIE Administration Chlordiazepoxide HCl 10 mg 04/15/21 13:20 04/16/21 03:31 Chlordiazepoxide 5 Mg Cap PO 10 mg Q6H PRN Administration Anxiety Duloxetine HCl 60 mg 04/15/21 12:00 04/15/21 13:06 Duloxetine 30 Mg Cap PO 60 mg QDAY CATHIE Administration Folic Acid 1 mg 04/15/21 10:00 04/15/21 15:21 Folic Acid 1 Mg Tab PO Not Given QDAY CATHIE Gabapentin 300 mg 04/15/21 14:00 04/15/21 20:14 Gabapentin 300 Mg Cap PO 300 mg TID CATHIE Administration Hydromorphone HCl 0.5 mg 04/14/21 16:00 Hydromorphone 1 Mg/1 Ml Inj IV Q23H PRN Pain , Severe (7-10) Lorazepam 2 mg 04/14/21 13:13 04/16/21 03:31 Lorazepam 2 Mg/Ml Vial IV 2 mg Q1HR PRN Administration CIWA-Ar 8-15 Lorazepam 4 mg 04/14/21 13:13 04/15/21 20:13 Lorazepam 2 Mg/Ml Vial IV 4 mg Q1HR PRN Administration CIWA-Ar 16-25 Lorazepam 4 mg 04/14/21 13:35 04/14/21 14:53 Lorazepam 2 Mg/Ml Vial IV 4 mg Q15MIN PRN Administration CIWA-Ar >25 Multivitamins 1 each 04/15/21 10:00 04/15/21 15:21 Multivitamins ,Therapeutic Tab PO Not Given QDAY CATHIE Ondansetron HCl 4 mg 04/14/21 16:00 Ondansetron 4 Mg/2 Ml Inj IV Q8H PRN Nausea And Vomiting Oxycodone/Acetaminophen 1 tab 04/14/21 16:00 Oxycodone /Acetaminophen 5-325mg Tab PO Q16H PRN Pain, Moderate (4-6) Sodium Chloride 10 ml 04/14/21 22:00 04/15/21 21:57 Sodium Chloride 0.9% 10 Ml Flush Syringe IV Not Given BID CATHIE Sodium Chloride 10 ml 04/14/21 16:00 04/15/21 20:14 Sodium Chloride 0.9% 10 Ml Flush Syringe IV 10 ml PRN PRN Administration LINE FLUSH Thiamine HCl 100 mg 04/15/21 10:00 04/15/21 15:22 Thiamine 100 Mg Tab PO Not Given QDAY CATHIE Trazodone HCl 150 mg 04/15/21 22:00 04/15/21 21:39 Trazodone 50 Mg Tab PO 150 mg QHS CATHIE Administration
--- NOTE | 2021-04-16 07:42 | Discharge Summary ---
Providers - Providers Date of Admission: 04/14/21 15:52 Attending physician: ELIF GUSTAFSON MD 04/15/21 08:02 Consult to Physician [CONS] Routine Comment: Consulting Provider: NICOLA ARCOS Physician Instructions: Reason For Exam: SUICIDAL IDEATION 04/15/21 08:03 Consult to Physician [CONS] Routine Comment: Consulting Provider: MOJGAN CARDONA Physician Instructions: Reason For Exam: SEIZURE 04/15/21 09:13 Consult to Mental Health [CONS] Routine Reason For Exam: SUICIDUAL IDEATION Primary care physician: [employer]ETING [employer]ISTANT Hospitalization Condition: Stable [facility]: [facility] Exam - Constitutional Vitals: Temp Pulse Resp BP Pulse Ox 97.9 F 84 15 123/81 94 04/16/21 03:34 04/16/21 03:36 04/16/21 03:36 04/16/21 03:34 04/16/21 03:36 Plan Activity: advance as tolerated, fall precautions Diet: low fat Special Instructions: record daily weights, record daily BP diary Additional Instructions: must avoid ETOH Follow up with: PRIMARY MD DIXIE [Primary Care Provider] - 7 Days NICOLA ARCOS MD [Staff Physician] - 7 Days Prescriptions: ARIPiprazole 5 mg PO QDAY #30 tablet Folic Acid [Folvite] 1 mg PO QDAY #30 tablet Gabapentin 300 mg PO TID #90 capsule Thiamine [Vitamin B-1] 100 mg PO QDAY #30 tablet
[2021-04-16] MEDS: THIAMINE 100 MG TAB PO SCH (10:27)
[2021-04-16] MEDS: ARIPiprazole 5 MG TAB PO SCH (10:27)
[2021-04-16] MEDS: FOLIC ACID 1 MG TAB PO SCH (10:27)
[2021-04-16] MEDS: DULoxetine 30 MG CAP PO SCH (10:27)
[2021-04-16] MEDS: MULTIVITAMINS ,THERAPEUTIC TAB PO SCH (10:27)
[2021-04-16] MEDS: GABAPENTIN 300 MG CAP PO SCH ×3 (10:37→21:05)
[2021-04-16] MEDS: buprenorphine 2 MG TAB SUBL SL SCH ×2 (10:39→21:37)
--- NOTE | 2021-04-16 13:18 | Progress Note ---
Subjective - Reason for Consult Consult date: 04/16/21 Reason for consult: SI - Chief Complaint Chief complaint: The patient was seen today. He still endorses suicidal thoughts and severe depression over the loss of his sister. The patient also verbalizes A/V hallucinations. REVIEW OF SYSTEMS Constitutional: Negative for weight loss ENT: Negative for stridor Respiratory: Negative for cough or hemoptysis All other systems reviewed and are negative MENTAL STATUS EXAMINATION General Appearance and Behavior: Age appropriate, good hygiene, wearing appropriate clothes. calm, cooperative Cooperation: cooperative Psychomotor Behavior: Psychomotor normal Mood: Severely Depressed Affect and affective range: congruent with stated mood, tearful Thought Process: goal directed Thought Content: depression, SI, hallucinations Speech: normal tone and pace Suicidal Ideation: Yes Homicidal Ideation: Denies Hallucinations: A/V Delusions: None elicited Impulse Control: Limited Insight and Judgment: Limited Memory: limited Attention: Attentive Orientation: alert and oriented Assessment and Plan (1) Bipolar Disorder (2) Alcohol Dependence Treatment Plan 1013 Restarted home meds Increase Abilify 10mg po daily Sitter: per primary Medical: per medical Disposition: Recommend acute psychiatric inpatient treatment Will follow. Thanks Case staffed with Dr. Gonzalez Mental Status Exam - Vital signs Last Vital Signs Temp 98.5 F 04/16/21 11:17 Pulse 85 04/16/21 11:17 Resp 15 04/16/21 11:17 BP 134/81 04/16/21 11:17 Pulse Ox 96 04/16/21 11:17
[2021-04-16] MEDS ORDERED: ARIPiprazole 5 MG TAB PO SCH (13:30)
[2021-04-16] MEDS: traZODone 50 MG TAB PO SCH (21:04)
[2021-04-17] MEDS: LORazepam 2 MG/ML VIAL IV PRN ×4 (03:48→21:56)
--- NOTE | 2021-04-17 09:05 | Progress Note ---
Assessment and Plan Assessment and plan: 45 YO Male with MDD, CASSANDRA, ETOH Dependence presents to ED for evaluation. Patient reports "I tried to kill myself and I think I had a seizure". Patient states that he attempted to hang himself this morning by wrapping cellophane around his neck and tied it to something and jumped off and attempt to take his own life. Patient also reports feeling as if he had a seizure Patient transported to [facility] via private vehicle for further care and evaluation of the aforementioned symptoms. The patient was seen and evaluated in the emergency department. All lab and imaging studies reviewed. The patient was found to be tremulous, with nausea, tangential thinking, and confabulation which is consistent with alcohol withdrawal syndrome. Patient also found to have suicide attempt. Patient placed on 1013 and admitted to medical floor due to increased risk of worsening symptoms. Mental health team consulted in ED. CIWA protocol initiated in the emergency department. Patient denies fever, chills, chest pain, palpitation, productive cough, skin rash, recent contact, known exposure to COVID-19. No prior admission for review. No medication listed at time of admission for reconciliation. Advanced care planning conducted in ED. Mental health team consulted in ED. (1) Alcohol withdrawal syndrome, with delirium Current Visit: Yes Status: Acute Plan to address problem: CIWA protocol: Thiamine, folic acid, multivitamin daily, banana bag, (2) Suicide attempt by hanging Current Visit: Yes Status: Acute Qualifiers: Encounter type: initial encounter Qualified Code(s): T71.162A - Asphyxiation due to hanging, intentional self-harm, initial encounter Plan to address problem: Supportive care, [address], mental health consult placed. (3) Major depression Current Visit: Yes Status: Acute Plan to address problem: Mental health team consulted. Supportive care, behavior change counseling, (4) Generalized anxiety disorder Current Visit: Yes Status: Acute Plan to address problem: Benzodiazepine therapy as clinically indicated, supportive care. Mental health team consulted. (5) DVT prophylaxis Current Visit: Yes Status: Acute Plan to address problem: SCDs bilateral lower extremities while in bed, patient is ambulatory (6) Advance care planning Current Visit: Yes Status: Acute Plan to address problem: Disease education conducted, care plan discussed, diagnoses discussed, prognosis discussed, patient is full code. Care plan discussed. +30 minutes. 04/15: Continue supportive care obtain PSYCH AND NEURO CONSULT, monitor for benzo withdrawal continue 1013 until evaluated by psych, will also check a TSH and a free T4 will defer imaging studies to neurologist. 04/16: Patient seen and examined resting comfortably no further seizure activity noted electrolytes are intact and in place Patient seen by Psych recommended inpatient psych treatment patient seen by Neurology, no Seizure meds recommended for etoh induced seizure Patient had uneventful night and is cleared for Discharge to inpatient Psych when Bed is available 04/17: Patient seen and examined, no clinical change, tolerating meds as recommended by Psych, continue 1013, CONTINUE, Increase Abilify 10mg po daily BY PSYCH. Awaiting inpatient Psych placement. History Interval history: Patient seen and examined more awake non-lethargic, Ambulating and in no acute distress Hospitalist Physical - Physical exam Narrative exam: General appearance: Present: No acute distress sitting up. Mild rhythmic consistent movement of the thumb - EENT Eyes: Present: PERRL ENT: hearing intact, clear oral mucosa - Neck Neck: Present: supple, normal ROM - Respiratory Respiratory effort: normal Respiratory: bilateral: CTA - Cardiovascular Heart Sounds: Present: S1 & S2. Absent: rub, click - Extremities Extremities: pulses symmetrical, No edema Peripheral Pulses: within normal limits - Abdominal General gastrointestinal: Present: soft, non-tender, non-distended, normal bowel sounds Male genitourinary: Present: normal - Integumentary Integumentary: Present: clear, warm, dry - Musculoskeletal Musculoskeletal: gait normal, strength equal bilaterally - Psychiatric Psychiatric: appropriate mood/affect, intact judgment & insight - Neurologic Neurologic: CNII-XII intact, moves all extremities - Constitutional Vitals: Temp Pulse Resp BP Pulse Ox 98.5 F 67 18 114/55 92 04/17/21 05:29 04/17/21 05:29 04/17/21 05:29 04/17/21 05:29 04/17/21 05:29 General appearance: Present: mild distress Results - Labs CBC & Chem 7: 04/14/21 12:58 04/14/21 12:58 Labs: Laboratory Last Values WBC 6.2 K/mm3 (4.5-11.0) 04/14/21 12:58 RBC 4.26 M/mm3 (3.65-5.03) 04/14/21 12:58 Hgb 13.4 gm/dl (11.8-15.2) 04/14/21 12:58 Hct 40.5 % (35.5-45.6) 04/14/21 12:58 MCV 95 fl (84-94) H 04/14/21 12:58 MCH 31 pg (28-32) 04/14/21 12:58 MCHC 33 % (32-34) 04/14/21 12:58 RDW 13.2 % (13.2-15.2) 04/14/21 12:58 Plt Count 185 K/mm3 (140-440) 04/14/21 12:58 Lymph % (Auto) 21.1 % (13.4-35.0) 04/14/21 12:58 [place] % (Auto) 7.3 % (0.0-7.3) 04/14/21 12:58 Eos % (Auto) 6.3 % (0.0-4.3) H 04/14/21 12:58 Baso % (Auto) 0.8 % (0.0-1.8) 04/14/21 12:58 Lymph # (Auto) 1.3 K/mm3 (1.2-5.4) 04/14/21 12:58 [place] # (Auto) 0.5 K/mm3 (0.0-0.8) 04/14/21 12:58 Eos # (Auto) 0.4 K/mm3 (0.0-0.4) 04/14/21 12:58 Baso # (Auto) 0.1 K/mm3 (0.0-0.1) 04/14/21 12:58 Seg Neutrophils % 64.5 % (40.0-70.0) 04/14/21 12:58 Seg Neutrophils # 4.0 K/mm3 (1.8-7.7) 04/14/21 12:58 Sodium 140 mmol/L (137-145) 04/14/21 12:58 Potassium 4.1 mmol/L (3.6-5.0) 04/14/21 12:58 Chloride 100.4 mmol/L (98-107) 04/14/21 12:58 Carbon Dioxide 30 mmol/L (22-30) 04/14/21 12:58 Anion Gap 14 mmol/L 04/14/21 12:58 BUN 9 mg/dL (9-20) 04/14/21 12:58 Creatinine 0.6 mg/dL (0.8-1.3) L 04/14/21 12:58 Estimated GFR > 60 ml/min 04/14/21 12:58 BUN/Creatinine Ratio 15 % 04/14/21 12:58 Glucose 94 mg/dL (75-100) 04/14/21 12:58 Calcium 8.8 mg/dL (8.4-10.2) 04/14/21 12:58 TSH 2.550 mlU/mL (0.270-4.200) 04/16/21 05:32 Free T4 1.16 ng/dL (0.76-1.46) 04/16/21 05:32 Urine Color Yellow (Yellow) 04/14/21 Unknown Urine Turbidity Clear (Clear) 04/14/21 Unknown Urine pH 6.0 (5.0-7.0) 04/14/21 Unknown Ur Specific [place] 1.014 (1.003-1.030) 04/14/21 Unknown Urine Protein <15 mg/dl mg/dL (Negative) 04/14/21 Unknown Urine Glucose (UA) Neg mg/dL (Negative) 04/14/21 Unknown Urine Ketones Neg mg/dL (Negative) 04/14/21 Unknown Urine Blood Neg (Negative) 04/14/21 Unknown Urine Nitrite Neg (Negative) 04/14/21 Unknown Urine Bilirubin Neg (Negative) 04/14/21 Unknown Urine Urobilinogen 4.0 mg/dL (<2.0) 04/14/21 Unknown Ur Leukocyte Esterase Neg (Negative) 04/14/21 Unknown Urine WBC (Auto) 1.0 /HPF (0.0-6.0) 04/14/21 Unknown Urine RBC (Auto) 1.0 /HPF (0.0-6.0) 04/14/21 Unknown U Epithel Cells (Auto) < 1.0 /HPF (0-13.0) 04/14/21 Unknown Urine Bacteria (Auto) 1+ /HPF (Negative) 04/14/21 Unknown Urine Opiates Screen Negative 04/14/21 Unknown Urine Methadone Screen Negative 04/14/21 Unknown Ur Barbiturates Screen Negative 04/14/21 Unknown Ur Phencyclidine Scrn Negative 04/14/21 Unknown Ur Amphetamines Screen Negative 04/14/21 Unknown U Benzodiazepines Scrn Positive 04/14/21 Unknown Urine Cocaine Screen Negative 04/14/21 Unknown U Marijuana (THC) Screen Negative 04/14/21 Unknown Drugs of Abuse Note Disclamer 04/14/21 Unknown Plasma/Serum Alcohol < 0.01 % (0-0.07) 04/14/21 12:58 Mullins/IV: Voiding Method Toilet Active Medications - Current Medications Current Medications: Generic Name Dose Route Start Last Admin Trade Name Freq PRN Reason Stop Dose Admin Acetaminophen 650 mg 04/14/21 16:00 Acetaminophen 325 Mg Tab PO Q4H PRN Pain MILD(1-3)/Fever >100.5/KRAUSE Albuterol 2.5 mg 04/14/21 16:00 Albuterol 2.5 Mg/3 Ml Nebu IH Q4HRT PRN Shortness Of Breath Aripiprazole 10 mg 04/17/21 10:00 Aripiprazole 10 Mg Tab PO QDAY CATHIE Buprenorphine HCl 8 mg 04/16/21 11:00 04/16/21 21:37 Buprenorphine 2 Mg Tab Subl SL 8 mg BID CATHIE Administration Chlordiazepoxide HCl 10 mg 04/15/21 13:20 04/16/21 16:17 Chlordiazepoxide 5 Mg Cap PO 10 mg Q6H PRN Administration Anxiety Duloxetine HCl 60 mg 04/15/21 12:00 04/16/21 10:27 Duloxetine 30 Mg Cap PO 60 mg QDAY CATHIE Administration Folic Acid 1 mg 04/15/21 10:00 04/16/21 10:27 Folic Acid 1 Mg Tab PO 1 mg QDAY CATHIE Administration Gabapentin 300 mg 04/15/21 14:00 04/16/21 21:05 Gabapentin 300 Mg Cap PO 300 mg TID CATHIE Administration Lorazepam 2 mg 04/14/21 13:13 04/17/21 03:48 Lorazepam 2 Mg/Ml Vial IV 2 mg Q1HR PRN Administration CIWA-Ar 8-15 Lorazepam 4 mg 04/14/21 13:13 04/15/21 20:13 Lorazepam 2 Mg/Ml Vial IV 4 mg Q1HR PRN Administration CIWA-Ar 16-25 Lorazepam 4 mg 04/14/21 13:35 04/14/21 14:53 Lorazepam 2 Mg/Ml Vial IV 4 mg Q15MIN PRN Administration CIWA-Ar >25 Multivitamins 1 each 04/15/21 10:00 04/16/21 10:27 Multivitamins ,Therapeutic Tab PO 1 each QDAY CATHIE Administration Ondansetron HCl 4 mg 04/14/21 16:00 Ondansetron 4 Mg/2 Ml Inj IV Q8H PRN Nausea And Vomiting Sodium Chloride 10 ml 04/14/21 22:00 04/16/21 21:07 Sodium Chloride 0.9% 10 Ml Flush Syringe IV 10 ml BID CATHIE Administration Sodium Chloride 10 ml 04/14/21 16:00 04/15/21 20:14 Sodium Chloride 0.9% 10 Ml Flush Syringe IV 10 ml PRN PRN Administration LINE FLUSH Thiamine HCl 100 mg 04/15/21 10:00 04/16/21 10:27 Thiamine 100 Mg Tab PO 100 mg QDAY CATHIE Administration Trazodone HCl 150 mg 04/15/21 22:00 04/16/21 21:04 Trazodone 50 Mg Tab PO 150 mg QHS CATHIE Administration
[2021-04-17] MEDS: GABAPENTIN 300 MG CAP PO SCH ×3 (09:36→21:12)
[2021-04-17] MEDS: DULoxetine 30 MG CAP PO SCH (09:36)
[2021-04-17] MEDS: MULTIVITAMINS ,THERAPEUTIC TAB PO SCH (09:36)
[2021-04-17] MEDS: ARIPiprazole 10 MG TAB PO SCH (09:37)
[2021-04-17] MEDS: FOLIC ACID 1 MG TAB PO SCH (09:37)
[2021-04-17] MEDS: buprenorphine 2 MG TAB SUBL SL SCH ×2 (10:10→22:16)
[2021-04-17] MEDS: THIAMINE 100 MG TAB PO SCH (10:12)
[2021-04-17] MEDS: traZODone 50 MG TAB PO SCH (21:12)
[2021-04-18] MEDS ORDERED: ALUM-MAG HYDROXIDE-SIMETHICONE 200-200-20MG/5ML ORAL LIQD 30 ML PO ONE (04:28)
[2021-04-18] MEDS: GABAPENTIN 300 MG CAP PO SCH ×3 (08:43→21:21)
[2021-04-18] MEDS: LORazepam 2 MG/ML VIAL IV PRN ×3 (08:44→15:18)
--- NOTE | 2021-04-18 09:09 | Progress Note ---
Assessment and Plan Assessment and plan: 45 YO Male with MDD, CASSANDRA, ETOH Dependence presents to ED for evaluation. Patient reports "I tried to kill myself and I think I had a seizure". Patient states that he attempted to hang himself this morning by wrapping cellophane around his neck and tied it to something and jumped off and attempt to take his own life. Patient also reports feeling as if he had a seizure Patient transported to [facility] via private vehicle for further care and evaluation of the aforementioned symptoms. The patient was seen and evaluated in the emergency department. All lab and imaging studies reviewed. The patient was found to be tremulous, with nausea, tangential thinking, and confabulation which is consistent with alcohol withdrawal syndrome. Patient also found to have suicide attempt. Patient placed on 1013 and admitted to medical floor due to increased risk of worsening symptoms. Mental health team consulted in ED. CIWA protocol initiated in the emergency department. Patient denies fever, chills, chest pain, palpitation, productive cough, skin rash, recent contact, known exposure to COVID-19. No prior admission for review. No medication listed at time of admission for reconciliation. Advanced care planning conducted in ED. Mental health team consulted in ED. -- Alcohol withdrawal syndrome, with delirium Current Visit: Yes Status: Acute CIWA protocol: Thiamine, folic acid, multivitamin daily, banana bag, --Suicide attempt by hanging Current Visit: Yes Status: Acute Supportive care, [address], mental health consult placed. spareribs trimmer at the bedside --Major depression Current Visit: Yes Status: Acute Plan to address problem: Mental health team consulted. Supportive care, behavior change counseling, -- Generalized anxiety disorder Current Visit: Yes Status: Acute Benzodiazepine therapy as clinically indicated, supportive care. Mental health team consulted. --DVT prophylaxis Current Visit: Yes Status: Acute Plan to address problem: SCDs bilateral lower extremities while in bed, patient is ambulatory --Advance care planning Current Visit: Yes Status: Acute Plan to address problem: Disease education conducted, care plan discussed, diagnoses discussed, prognosis discussed, patient is full code. Care plan discussed. +30 minutes. 04/15: Continue supportive care obtain PSYCH AND NEURO CONSULT, monitor for benzo withdrawal continue 1013 until evaluated by psych, will also check a TSH and a free T4 will defer imaging studies to neurologist. 04/16: Patient seen and examined resting comfortably no further seizure activity noted electrolytes are intact and in place Patient seen by Psych recommended inpatient psych treatment patient seen by Neurology, no Seizure meds recommended for etoh induced seizure Patient had uneventful night and is cleared for Discharge to inpatient Psych when Bed is available 04/17: Patient seen and examined, no clinical change, tolerating meds as r ecommended by Psych, continue 1013, CONTINUE, Increase Abilify 10mg po daily BY PSYCH. Awaiting inpatient Psych placement. 04/18; patient continues to be lethargic, noncommunicative sometimes crying in mild distress, follow psych evaluation and recommendations History Interval history: I seen and examined the patient at the bedside Patient's chart and medications reviewed Patient is in 1013 status with construction safety consultant in the room Patient anxious to go home, no new complaints Vital signs reviewed Hospitalist Physical - Constitutional Vitals: Temp Pulse Resp BP Pulse Ox 98.5 F 72 18 119/76 93 04/18/21 04:20 04/18/21 04:20 04/18/21 04:20 04/18/21 04:20 04/18/21 04:20 General appearance: Present: no acute distress, well-nourished, disheveled, malodorous - EENT Eyes: Present: PERRL, EOM intact. Absent: scleral icterus, conjunctival injection - Neck Neck: Present: supple, normal ROM - Respiratory Respiratory effort: normal Respiratory: bilateral: diminished, negative: rales, rhonchi, wheezing - Cardiovascular Rhythm: regular Heart Sounds: Present: S1 & S2 - Extremities Extremities: no ischemia, No edema - Abdominal General gastrointestinal: soft, non-tender, non-distended, normal bowel sounds - Integumentary Integumentary: Present: clear, warm - Psychiatric Psychiatric: appropriate mood/affect, cooperative - Neurologic Neurologic: moves all extremities Results - Labs CBC & Chem 7: 04/14/21 12:58 04/14/21 12:58 Labs: Laboratory Last Values WBC 6.2 K/mm3 (4.5-11.0) 04/14/21 12:58 RBC 4.26 M/mm3 (3.65-5.03) 04/14/21 12:58 Hgb 13.4 gm/dl (11.8-15.2) 04/14/21 12:58 Hct 40.5 % (35.5-45.6) 04/14/21 12:58 MCV 95 fl (84-94) H 04/14/21 12:58 MCH 31 pg (28-32) 04/14/21 12:58 MCHC 33 % (32-34) 04/14/21 12:58 RDW 13.2 % (13.2-15.2) 04/14/21 12:58 Plt Count 185 K/mm3 (140-440) 04/14/21 12:58 Lymph % (Auto) 21.1 % (13.4-35.0) 04/14/21 12:58 [place] % (Auto) 7.3 % (0.0-7.3) 04/14/21 12:58 Eos % (Auto) 6.3 % (0.0-4.3) H 04/14/21 12:58 Baso % (Auto) 0.8 % (0.0-1.8) 04/14/21 12:58 Lymph # (Auto) 1.3 K/mm3 (1.2-5.4) 04/14/21 12:58 [place] # (Auto) 0.5 K/mm3 (0.0-0.8) 04/14/21 12:58 Eos # (Auto) 0.4 K/mm3 (0.0-0.4) 04/14/21 12:58 Baso # (Auto) 0.1 K/mm3 (0.0-0.1) 04/14/21 12:58 Seg Neutrophils % 64.5 % (40.0-70.0) 04/14/21 12:58 Seg Neutrophils # 4.0 K/mm3 (1.8-7.7) 04/14/21 12:58 Sodium 140 mmol/L (137-145) 04/14/21 12:58 Potassium 4.1 mmol/L (3.6-5.0) 04/14/21 12:58 Chloride 100.4 mmol/L (98-107) 04/14/21 12:58 Carbon Dioxide 30 mmol/L (22-30) 04/14/21 12:58 Anion Gap 14 mmol/L 04/14/21 12:58 BUN 9 mg/dL (9-20) 04/14/21 12:58 Creatinine 0.6 mg/dL (0.8-1.3) L 04/14/21 12:58 Estimated GFR > 60 ml/min 12 12:58 BUN/Creatinine Ratio 15 % 04/14/21 12:58 Glucose 94 mg/dL (75-100) 04/14/21 12:58 Calcium 8.8 mg/dL (8.4-10.2) 04/14/21 12:58 TSH 2.550 mlU/mL (0.270-4.200) 04/16/21 05:32 Free T4 1.16 ng/dL (0.76-1.46) 04/16/21 05:32 Urine Color Yellow (Yellow) 04/14/21 Unknown Urine Turbidity Clear (Clear) 04/14/21 Unknown Urine pH 6.0 (5.0-7.0) 04/14/21 Unknown Ur Specific [place] 1.014 (1.003-1.030) 04/14/21 Unknown Urine Protein <15 mg/dl mg/dL (Negative) 04/14/21 Unknown Urine Glucose (UA) Neg mg/dL (Negative) 04/14/21 Unknown Urine Ketones Neg mg/dL (Negative) 04/14/21 Unknown Urine Blood Neg (Negative) 04/14/21 Unknown Urine Nitrite Neg (Negative) 04/14/21 Unknown Urine Bilirubin Neg (Negative) 04/14/21 Unknown Urine Urobilinogen 4.0 mg/dL (<2.0) 04/14/21 Unknown Ur Leukocyte Esterase Neg (Negative) 04/14/21 Unknown Urine WBC (Auto) 1.0 /HPF (0.0-6.0) 04/14/21 Unknown Urine RBC (Auto) 1.0 /HPF (0.0-6.0) 04/14/21 Unknown U Epithel Cells (Auto) < 1.0 /HPF (0-13.0) 04/14/21 Unknown Urine Bacteria (Auto) 1+ /HPF (Negative) 04/14/21 Unknown Urine Opiates Screen Negative 04/14/21 Unknown Urine Methadone Screen Negative 04/14/21 Unknown Ur Barbiturates Screen Negative 04/14/21 Unknown Ur Phencyclidine Scrn Negative 04/14/21 Unknown Ur Amphetamines Screen Negative 04/14/21 Unknown U Benzodiazepines Scrn Positive 04/14/21 Unknown Urine Cocaine Screen Negative 04/14/21 Unknown U Marijuana (THC) Screen Negative 04/14/21 Unknown Drugs of Abuse Note Disclamer 04/14/21 Unknown Plasma/Serum Alcohol < 0.01 % (0-0.07) 04/14/21 12:58 Mullins/IV: Voiding Method Toilet Active Medications - Current Medications Current Medications: Generic Name Dose Route Start Last Admin Trade Name Freq PRN Reason Stop Dose Admin Acetaminophen 650 mg 04/14/21 16:00 Acetaminophen 325 Mg Tab PO Q4H PRN Pain MILD(1-3)/Fever >100.5/KRAUSE Albuterol 2.5 mg 04/14/21 16:00 Albuterol 2.5 Mg/3 Ml Nebu IH Q4HRT PRN Shortness Of Breath Aripiprazole 10 mg 04/17/21 10:00 04/17/21 09:37 Aripiprazole 10 Mg Tab PO 10 mg QDAY CATHIE Administration Buprenorphine HCl 8 mg 04/16/21 11:00 04/17/21 22:16 Buprenorphine 2 Mg Tab Subl SL 8 mg BID CATHIE Administration Chlordiazepoxide HCl 10 mg 04/15/21 13:20 04/18/21 01:48 Chlordiazepoxide 5 Mg Cap PO 10 mg Q6H PRN Administration Anxiety Duloxetine HCl 60 mg 04/15/21 12:00 04/17/21 09:36 Duloxetine 30 Mg Cap PO 60 mg QDAY CATHIE Administration Folic Acid 1 mg 04/15/21 10:00 04/17/21 09:37 Folic Acid 1 Mg Tab PO 1 mg QDAY CATHIE Administration Gabapentin 300 mg 04/15/21 14:00 04/18/21 08:43 Gabapentin 300 Mg Cap PO 300 mg TID CATHIE Administration Lorazepam 2 mg 04/14/21 13:13 04/18/21 08:44 Lorazepam 2 Mg/Ml Vial IV 2 mg Q1HR PRN Administration CIWA-Ar 8-15 Lorazepam 4 mg 04/14/21 13:13 04/15/21 20:13 Lorazepam 2 Mg/Ml Vial IV 4 mg Q1HR PRN Administration CIWA-Ar 16-25 Lorazepam 4 mg 04/14/21 13:35 04/14/21 14:53 Lorazepam 2 Mg/Ml Vial IV 4 mg Q15MIN PRN Administration CIWA-Ar >25 Multivitamins 1 each 04/15/21 10:00 04/17/21 09:36 Multivitamins ,Therapeutic Tab PO 1 each QDAY CATHIE Administration Ondansetron HCl 4 mg 04/14/21 16:00 Ondansetron 4 Mg/2 Ml Inj IV Q8H PRN Nausea And Vomiting Sodium Chloride 10 ml 04/14/21 22:00 04/17/21 21:57 Sodium Chloride 0.9% 10 Ml Flush Syringe IV 10 ml BID CATHIE Administration Sodium Chloride 10 ml 04/14/21 16:00 04/15/21 20:14 Sodium Chloride 0.9% 10 Ml Flush Syringe IV 10 ml PRN PRN Administration LINE FLUSH Thiamine HCl 100 mg 04/15/21 10:00 04/17/21 10:12 Thiamine 100 Mg Tab PO 100 mg QDAY CATHIE Administration Trazodone HCl 150 mg 04/15/21 22:00 04/17/21 21:12 Trazodone 50 Mg Tab PO 150 mg QHS CATHIE Administration
[2021-04-18] MEDS: ARIPiprazole 10 MG TAB PO SCH (09:21)
[2021-04-18] MEDS: THIAMINE 100 MG TAB PO SCH (09:21)
[2021-04-18] MEDS: FOLIC ACID 1 MG TAB PO SCH (09:21)
[2021-04-18] MEDS: MULTIVITAMINS ,THERAPEUTIC TAB PO SCH (09:21)
[2021-04-18] MEDS: DULoxetine 30 MG CAP PO SCH (09:21)
[2021-04-18] MEDS: buprenorphine 2 MG TAB SUBL SL SCH ×2 (10:51→22:06)
[2021-04-18] MEDS: traZODone 50 MG TAB PO SCH (21:20)
[2021-04-19 06:31] LABS: Blood Urea Nitrogen 14 mg/dL (9-20); Calcium 8.6 mg/dL (8.4-10.2); Hemolysis Index 40
[2021-04-19 06:32] LABS: BUN/Creatinine Ratio 20
[2021-04-19] MEDS: GABAPENTIN 300 MG CAP PO SCH ×3 (08:44→21:39)
[2021-04-19] MEDS: DULoxetine 30 MG CAP PO SCH ×2 (08:45→16:56)
[2021-04-19] MEDS: ARIPiprazole 10 MG TAB PO SCH ×2 (08:45→16:56)
[2021-04-19] MEDS: FOLIC ACID 1 MG TAB PO SCH ×2 (08:45→16:56)
[2021-04-19] MEDS: THIAMINE 100 MG TAB PO SCH ×3 (08:46→16:57)
[2021-04-19] MEDS: MULTIVITAMINS ,THERAPEUTIC TAB PO SCH ×2 (08:46→16:57)
[2021-04-19] MEDS: buprenorphine 2 MG TAB SUBL SL SCH ×2 (09:32→22:47)
--- NOTE | 2021-04-19 12:46 | Progress Note ---
Subjective - Reason for Consult Consult date: 04/19/21 Reason for consult: suicidal ideation - Chief Complaint Chief complaint: The patient was seen today. He continues to endorses suicidal thoughts without a plan. The patient denies A/V hallucinations but admits to having tactile hallucinations. REVIEW OF SYSTEMS Constitutional: Negative for weight loss ENT: Negative for stridor Respiratory: Negative for cough or hemoptysis All other systems reviewed and are negative MENTAL STATUS EXAMINATION General Appearance and Behavior: Age appropriate, good hygiene, wearing appropriate clothes. calm, cooperative Cooperation: cooperative Psychomotor Behavior: Psychomotor normal Mood: Severely Depressed Affect and affective range: congruent with stated mood, tearful Thought Process: goal directed Thought Content: depression, SI, hallucinations Speech: normal tone and pace Suicidal Ideation: Yes Homicidal Ideation: Denies Hallucinations: Tactile Delusions: None elicited Impulse Control: Limited Insight and Judgment: Limited Memory: limited Attention: Attentive Orientation: alert and oriented Assessment and Plan (1) Bipolar Disorder (2) Alcohol Dependence Treatment Plan 1013 Restarted home meds Increase Abilify 10mg po daily Sitter: per primary Medical: per medical Disposition: Recommend acute psychiatric inpatient treatment Will follow. Thanks Case staffed with Dr. Gonzalez Mental Status Exam - Vital signs Last Vital Signs Temp 98.5 F 04/19/21 06:18 Pulse 62 04/19/21 06:18 Resp 18 04/19/21 06:18 BP 93/56 04/19/21 06:18 Pulse Ox 98 04/19/21 10:00
--- NOTE | 2021-04-19 18:18 | Progress Note ---
Assessment and Plan Assessment and plan: 45 YO Male with MDD, CASSANDRA, ETOH Dependence presents to ED for evaluation. Patient reports "I tried to kill myself and I think I had a seizure". Patient states that he attempted to hang himself this morning by wrapping cellophane around his neck and tied it to something and jumped off and attempt to take his own life. Patient also reports feeling as if he had a seizure Patient transported to [facility] via private vehicle for further care and evaluation of the aforementioned symptoms. The patient was seen and evaluated in the emergency department. All lab and imaging studies reviewed. The patient was found to be tremulous, with nausea, tangential thinking, and confabulation which is consistent with alcohol withdrawal syndrome. Patient also found to have suicide attempt. Patient placed on 1013 and admitted to medical floor due to increased risk of worsening symptoms. Mental health team consulted in ED. CIWA protocol initiated in the emergency department. Patient denies fever, chills, chest pain, palpitation, productive cough, skin rash, recent contact, known exposure to COVID-19. No prior admission for review. No medication listed at time of admission for reconciliation. Advanced care planning conducted in ED. Mental health team consulted in ED. --COVID-19 test negative 04/19/2021 -- Alcohol withdrawal syndrome, with delirium Current Visit: Yes Status: Acute CIWA protocol: Thiamine, folic acid, multivitamin daily, banana bag, --Suicide attempt by hanging Current Visit: Yes Status: Acute Supportive care, [address], mental health consult placed. evening sitter at the bedside --Major depression Current Visit: Yes Status: Acute Plan to address problem: Mental health team consulted. Supportive care, behavior change counseling, -- Generalized anxiety disorder Current Visit: Yes Status: Acute Benzodiazepine therapy as clinically indicated, supportive care. Mental health team consulted. --DVT prophylaxis Current Visit: Yes Status: Acute Plan to address problem: SCDs bilateral lower extremities while in bed, patient is ambulatory --Advance care planning Current Visit: Yes Status: Acute Plan to address problem: Disease education conducted, care plan discussed, diagnoses discussed, prognosis discussed, patient is full code. We will closely monitor the patient and adjust management as needed Discharge planning; awaiting inpatient psych facility placement at [facility] COVID-19 test sent 04/15: Continue supportive care obtain PSYCH AND NEURO CONSULT, monitor for benzo withdrawal continue 1013 until evaluated by psych, will also check a TSH and a free T4 will defer imaging studies to neurologist. 04/16: Patient seen and examined resting comfortably no further seizure activity noted electrolytes are intact and in place Patient seen by Psych recommended inpatient psych treatment patient seen by Neurology, no Seizure meds recommended for etoh induced seizure Patient had uneventful night and is cleared for Discharge to inpatient Psych when Bed is available 04/17: Patient seen and examined, no clinical change, tolerating meds as recommended by Psych, continue 1013, CONTINUE, Increase Abilify 10mg po daily BY PSYCH. Awaiting inpatient Psych placement. 04/18; patient continues to be lethargic, noncommunicative sometimes crying in mild distress, follow psych evaluation and recommendations 04/19; COVID-19 test is negative today, patient clinically stable for discharge, awaiting inpatient psych placement at [facility] History Interval history: I seen and examined the patient at the bedside Patient's chart and medications reviewed Patient has no new complaints Awaiting inpatient [facility] facility placement[[facility]] Hospitalist Physical - Constitutional Vitals: Temp Pulse Resp BP Pulse Ox 98.5 F 72 22 129/79 94 04/19/21 11:15 04/19/21 11:15 04/19/21 11:15 04/19/21 11:15 04/19/21 11:15 General appearance: Present: no acute distress, well-nourished, disheveled - EENT Eyes: Present: PERRL, EOM intact - Neck Neck: Present: supple, normal ROM - Respiratory Respiratory effort: normal Respiratory: bilateral: diminished, negative: rales, rhonchi, wheezing - Cardiovascular Rhythm: regular Heart Sounds: Present: S1 & S2 - Extremities Extremities: no ischemia, No edema - Abdominal General gastrointestinal: soft, non-tender, non-distended, normal bowel sounds - Integumentary Integumentary: Present: clear, warm - Psychiatric Psychiatric: appropriate mood/affect, cooperative - Neurologic Neurologic: CNII-XII intact, moves all extremities Results - Labs CBC & Chem 7: 04/14/21 12:58 04/19/21 05:39 Labs: Laboratory Last Values WBC 6.2 K/mm3 (4.5-11.0) 04/14/21 12:58 RBC 4.26 M/mm3 (3.65-5.03) 04/14/21 12:58 Hgb 13.4 gm/dl (11.8-15.2) 04/14/21 12:58 Hct 40.5 % (35.5-45.6) 04/14/21 12:58 MCV 95 fl (84-94) H 04/14/21 12:58 MCH 31 pg (28-32) 04/14/21 12:58 MCHC 33 % (32-34) 04/14/21 12:58 RDW 13.2 % (13.2-15.2) 04/14/21 12:58 Plt Count 185 K/mm3 (140-440) 04/14/21 12:58 Lymph % (Auto) 21.1 % (13.4-35.0) 04/14/21 12:58 [place] % (Auto) 7.3 % (0.0-7.3) 04/14/21 12:58 Eos % (Auto) 6.3 % (0.0-4.3) H 04/14/21 12:58 Baso % (Auto) 0.8 % (0.0-1.8) 04/14/21 12:58 Lymph # (Auto) 1.3 K/mm3 (1.2-5.4) 04/14/21 12:58 [place] # (Auto) 0.5 K/mm3 (0.0-0.8) 04/14/21 12:58 Eos # (Auto) 0.4 K/mm3 (0.0-0.4) 04/14/21 12:58 Baso # (Auto) 0.1 K/mm3 (0.0-0.1) 04/14/21 12:58 Seg Neutrophils % 64.5 % (40.0-70.0) 04/14/21 12:58 Seg Neutrophils # 4.0 K/mm3 (1.8-7.7) 04/14/21 12:58 Sodium 141 mmol/L (137-145) 04/19/21 05:39 Potassium 4.4 mmol/L (3.6-5.0) 04/19/21 05:39 Chloride 102.8 mmol/L (98-107) 04/19/21 05:39 Carbon Dioxide 29 mmol/L (22-30) 04/19/21 05:39 Anion Gap 14 mmol/L 04/19/21 05:39 BUN 14 mg/dL (9-20) 04/19/21 05:39 Creatinine 0.7 mg/dL (0.8-1.3) L 04/19/21 05:39 Estimated GFR > 60 ml/min 04/19/21 05:39 BUN/Creatinine Ratio 20 % 04/19/21 05:39 Glucose 91 mg/dL (75-100) 04/19/21 05:39 Calcium 8.6 mg/dL (8.4-10.2) 04/19/21 05:39 Phosphorus 3.80 mg/dL (2.5-4.5) 04/19/21 05:39 Magnesium 2.10 mg/dL (1.7-2.3) 04/19/21 05:39 TSH 2.550 mlU/mL (0.270-4.200) 04/16/21 05:32 Free T4 1.16 ng/dL (0.76-1.46) 04/16/21 05:32 Urine Color Yellow (Yellow) 04/14/21 Unknown Urine Turbidity Clear (Clear) 04/14/21 Unknown Urine pH 6.0 (5.0-7.0) 04/14/21 Unknown Ur Specific [place] 1.014 (1.003-1.030) 04/14/21 Unknown Urine Protein <15 mg/dl mg/dL (Negative) 04/14/21 Unknown Urine Glucose (UA) Neg mg/dL (Negative) 04/14/21 Unknown Urine Ketones Neg mg/dL (Negative) 04/14/21 Unknown Urine Blood Neg (Negative) 04/14/21 Unknown Urine Nitrite Neg (Negative) 04/14/21 Unknown Urine Bilirubin Neg (Negative) 04/14/21 Unknown Urine Urobilinogen 4.0 mg/dL (<2.0) 04/14/21 Unknown Ur Leukocyte Esterase Neg (Negative) 04/14/21 Unknown Urine WBC (Auto) 1.0 /HPF (0.0-6.0) 04/14/21 Unknown Urine RBC (Auto) 1.0 /HPF (0.0-6.0) 04/14/21 Unknown U Epithel Cells (Auto) < 1.0 /HPF (0-13.0) 04/14/21 Unknown Urine Bacteria (Auto) 1+ /HPF (Negative) 04/14/21 Unknown Urine Opiates Screen Negative 04/14/21 Unknown Urine Methadone Screen Negative 04/14/21 Unknown Ur Barbiturates Screen Negative 04/14/21 Unknown Ur Phencyclidine Scrn Negative 04/14/21 Unknown Ur Amphetamines Screen Negative 04/14/21 Unknown U Benzodiazepines Scrn Positive 04/14/21 Unknown Urine Cocaine Screen Negative 04/14/21 Unknown U Marijuana (THC) Screen Negative 04/14/21 Unknown Drugs of Abuse Note Disclamer 04/14/21 Unknown Plasma/Serum Alcohol < 0.01 % (0-0.07) 04/14/21 12:58 Coronavirus (PCR) Negative (Negative) 04/19/21 Unknown Mullins/IV: Voiding Method Toilet Active Medications - Current Medications Current Medications: Generic Name Dose Route Start Last Admin Trade Name Freq PRN Reason Stop Dose Admin Acetaminophen 650 mg 04/14/21 16:00 Acetaminophen 325 Mg Tab PO Q4H PRN Pain MILD(1-3)/Fever >100.5/KRAUSE Albuterol 2.5 mg 04/14/21 16:00 Albuterol 2.5 Mg/3 Ml Nebu IH Q4HRT PRN Shortness Of Breath Aripiprazole 10 mg 04/17/21 10:00 04/19/21 16:56 Aripiprazole 10 Mg Tab PO Not Given QDAY CATHIE Buprenorphine HCl 8 mg 04/16/21 11:00 04/19/21 09:32 Buprenorphine 2 Mg Tab Subl SL 8 mg BID CATHIE Administration Chlordiazepoxide HCl 10 mg 04/15/21 13:20 04/19/21 08:55 Chlordiazepoxide 5 Mg Cap PO 10 mg Q6H PRN Administration Anxiety Duloxetine HCl 60 mg 04/15/21 12:00 04/19/21 16:56 Duloxetine 30 Mg Cap PO Not Given QDAY CATHIE Folic Acid 1 mg 04/15/21 10:00 04/19/21 16:56 Folic Acid 1 Mg Tab PO Not Given QDAY CATHIE Gabapentin 300 mg 04/15/21 14:00 04/19/21 14:19 Gabapentin 300 Mg Cap PO 300 mg TID CATHIE Administration Lorazepam 2 mg 04/14/21 13:13 04/18/21 15:18 Lorazepam 2 Mg/Ml Vial IV 2 mg Q1HR PRN Administration CIWA-Ar 8-15 Lorazepam 4 mg 12/06/21 13:13 04/15/21 20:13 Lorazepam 2 Mg/Ml Vial IV 4 mg Q1HR PRN Administration CIWA-Ar 16-25 Lorazepam 4 mg 04/14/21 13:35 04/14/21 14:53 Lorazepam 2 Mg/Ml Vial IV 4 mg Q15MIN PRN Administration CIWA-Ar >25 Multivitamins 1 each 04/15/21 10:00 04/19/21 16:57 Multivitamins ,Therapeutic Tab PO Not Given QDAY CATHIE Ondansetron HCl 4 mg 04/14/21 16:00 Ondansetron 4 Mg/2 Ml Inj IV Q8H PRN Nausea And Vomiting Sodium Chloride 10 ml 04/14/21 22:00 04/19/21 16:56 Sodium Chloride 0.9% 10 Ml Flush Syringe IV Not Given BID CATHIE Sodium Chloride 10 ml 04/14/21 16:00 04/15/21 20:14 Sodium Chloride 0.9% 10 Ml Flush Syringe IV 10 ml PRN PRN Administration LINE FLUSH Thiamine HCl 100 mg 04/15/21 10:00 04/19/21 16:57 Thiamine 100 Mg Tab PO Not Given QDAY CATHIE Trazodone HCl 150 mg 04/15/21 22:00 04/18/21 21:20 Trazodone 50 Mg Tab PO 150 mg QHS CATHIE Administration
[2021-04-19] MEDS: traZODone 50 MG TAB PO SCH (22:38)
[2021-04-20] MEDS: ARIPiprazole 10 MG TAB PO SCH (08:59)
[2021-04-20] MEDS: GABAPENTIN 300 MG CAP PO SCH ×3 (08:59→21:39)
[2021-04-20] MEDS: MULTIVITAMINS ,THERAPEUTIC TAB PO SCH (09:00)
[2021-04-20] MEDS: DULoxetine 30 MG CAP PO SCH (09:00)
[2021-04-20] MEDS: buprenorphine 2 MG TAB SUBL SL SCH ×2 (09:00→21:54)
[2021-04-20] MEDS: FOLIC ACID 1 MG TAB PO SCH (09:00)
[2021-04-20] MEDS: THIAMINE 100 MG TAB PO SCH (09:01)
--- NOTE | 2021-04-20 12:09 | Progress Note ---
Assessment and Plan Assessment and plan: 45 YO Male with MDD, CASSANDRA, ETOH Dependence presents to ED for evaluation. Patient reports "I tried to kill myself and I think I had a seizure". Patient states that he attempted to hang himself this morning by wrapping cellophane around his neck and tied it to something and jumped off and attempt to take his own life. Patient also reports feeling as if he had a seizure Patient transported to [facility] via private vehicle for further care and evaluation of the aforementioned symptoms. The patient was seen and evaluated in the emergency department. All lab and imaging studies reviewed. The patient was found to be tremulous, with nausea, tangential thinking, and confabulation which is consistent with alcohol withdrawal syndrome. Patient also found to have suicide attempt. Patient placed on 1013 and admitted to medical floor due to increased risk of worsening symptoms. Mental health team consulted in ED. CIWA protocol initiated in the emergency department. Patient denies fever, chills, chest pain, palpitation, productive cough, skin rash, recent contact, known exposure to COVID-19. No prior admission for review. No medication listed at time of admission for reconciliation. Advanced care planning conducted in ED. Mental health team consulted in ED. --COVID-19 test negative 04/19/2021 -- Alcohol withdrawal syndrome, with delirium Current Visit: Yes Status: Acute CIWA protocol: Thiamine, folic acid, multivitamin daily, banana bag, --Suicide attempt by hanging Current Visit: Yes Status: Acute Supportive care, [address], mental health consult placed. house sitter at the bedside --Major depression Current Visit: Yes Status: Acute Plan to address problem: Mental health team consulted. Supportive care, behavior change counseling, -- Generalized anxiety disorder Current Visit: Yes Status: Acute Benzodiazepine therapy as clinically indicated, supportive care. Mental health team consulted. --DVT prophylaxis Current Visit: Yes Status: Acute Plan to address problem: SCDs bilateral lower extremities while in bed, patient is ambulatory --Advance care planning Current Visit: Yes Status: Acute Plan to address problem: Disease education conducted, care plan discussed, diagnoses discussed, prognosis discussed, patient is full code. We will closely monitor the patient and adjust management as needed Discharge planning; awaiting inpatient psych facility placement at [facility] COVID-19 test sent 04/15: Continue supportive care obtain PSYCH AND NEURO CONSULT, monitor for benzo withdrawal continue 1013 until evaluated by psych, will also check a TSH and a free T4 will defer imaging studies to neurologist. 04/16: Patient seen and examined resting comfortably no further seizure activity noted electrolytes are intact and in place Patient seen by Psych recommended inpatient psych treatment patient seen by Neurology, no Seizure meds recommended for etoh induced seizure Patient had uneventful night and is cleared for Discharge to inpatient Psych when Bed is available 04/17: Patient seen and examined, no clinical change, tolerating meds as recommended by Psych, continue 1013, CONTINUE, Increase Abilify 10mg po daily BY PSYCH. Awaiting inpatient Psych placement. 04/18; patient continues to be lethargic, noncommunicative sometimes crying in mild distress, follow psych evaluation and recommendations 04/19; COVID-19 test is negative today, patient clinically stable for discharge, awaiting inpatient psych placement at [facility] 04/20; patient is medically stable for discharge, awaiting inpatient psych placement, discharge planning per case management History Interval history: I have seen and examined patient at the bedside this morning Patient feels slightly better anxious to go to inpatient psych facility Case management assisting with discharge planning Patient is slightly anxious no agitation or aggression no psychosis Hospitalist Physical - Constitutional Vitals: Temp Pulse Resp BP Pulse Ox 98.9 F 62 18 100/62 96 04/20/21 06:05 04/20/21 06:05 04/20/21 06:05 04/20/21 06:05 04/20/21 07:45 General appearance: Present: no acute distress, well-nourished, disheveled - EENT Eyes: Present: PERRL, EOM intact - Neck Neck: Present: supple, normal ROM - Respiratory Respiratory effort: normal Respiratory: bilateral: diminished, negative: rales, rhonchi, wheezing - Cardiovascular Rhythm: regular Heart Sounds: Present: S1 & S2 - Extremities Extremities: no ischemia, No edema - Abdominal General gastrointestinal: soft, non-tender, non-distended, normal bowel sounds - Integumentary Integumentary: Present: clear, warm - Psychiatric Psychiatric: appropriate mood/affect, cooperative - Neurologic Neurologic: CNII-XII intact, moves all extremities Results - Labs CBC & Chem 7: 04/14/21 12:58 04/19/21 05:39 Labs: Laboratory Last Values WBC 6.2 K/mm3 (4.5-11.0) 04/14/21 12:58 RBC 4.26 M/mm3 (3.65-5.03) 04/14/21 12:58 Hgb 13.4 gm/dl (11.8-15.2) 04/14/21 12:58 Hct 40.5 % (35.5-45.6) 04/14/21 12:58 MCV 95 fl (84-94) H 04/14/21 12:58 MCH 31 pg (28-32) 04/14/21 12:58 MCHC 33 % (32-34) 04/14/21 12:58 RDW 13.2 % (13.2-15.2) 04/14/21 12:58 Plt Count 185 K/mm3 (140-440) 04/14/21 12:58 Lymph % (Auto) 21.1 % (13.4-35.0) 04/14/21 12:58 [place] % (Auto) 7.3 % (0.0-7.3) 04/14/21 12:58 Eos % (Auto) 6.3 % (0.0-4.3) H 04/14/21 12:58 Baso % (Auto) 0.8 % (0.0-1.8) 04/14/21 12:58 Lymph # (Auto) 1.3 K/mm3 (1.2-5.4) 04/14/21 12:58 [place] # (Auto) 0.5 K/mm3 (0.0-0.8) 04/14/21 12:58 Eos # (Auto) 0.4 K/mm3 (0.0-0.4) 04/14/21 12:58 Baso # (Auto) 0.1 K/mm3 (0.0-0.1) 04/14/21 12:58 Seg Neutrophils % 64.5 % (40.0-70.0) 04/14/21 12:58 Seg Neutrophils # 4.0 K/mm3 (1.8-7.7) 04/14/21 12:58 Sodium 141 mmol/L (137-145) 04/19/21 05:39 Potassium 4.4 mmol/L (3.6-5.0) 04/19/21 05:39 Chloride 102.8 mmol/L (98-107) 04/19/21 05:39 Carbon Dioxide 29 mmol/L (22-30) 04/19/21 05:39 Anion Gap 14 mmol/L 04/19/21 05:39 BUN 14 mg/dL (9-20) 04/19/21 05:39 Creatinine 0.7 mg/dL (0.8-1.3) L 04/19/21 05:39 Estimated GFR > 60 ml/min 04/19/21 05:39 BUN/Creatinine Ratio 20 % 04/19/21 05:39 Glucose 91 mg/dL (75-100) 04/19/21 05:39 Calcium 8.6 mg/dL (8.4-10.2) 04/19/21 05:39 Phosphorus 3.80 mg/dL (2.5-4.5) 04/19/21 05:39 Magnesium 2.10 mg/dL (1.7-2.3) 04/19/21 05:39 TSH 2.550 mlU/mL (0.270-4.200) 04/16/21 05:32 Free T4 1.16 ng/dL (0.76-1.46) 04/16/21 05:32 Urine Color Yellow (Yellow) 04/14/21 Unknown Urine Turbidity Clear (Clear) 04/14/21 Unknown Urine pH 6.0 (5.0-7.0) 04/14/21 Unknown Ur Specific [place] 1.014 (1.003-1.030) 04/14/21 Unknown Urine Protein <15 mg/dl mg/dL (Negative) 04/14/21 Unknown Urine Glucose (UA) Neg mg/dL (Negative) 04/14/21 Unknown Urine Ketones Neg mg/dL (Negative) 04/14/21 Unknown Urine Blood Neg (Negative) 04/14/21 Unknown Urine Nitrite Neg (Negative) 04/14/21 Unknown Urine Bilirubin Neg (Negative) 04/14/21 Unknown Urine Urobilinogen 4.0 mg/dL (<2.0) 04/14/21 Unknown Ur Leukocyte Esterase Neg (Negative) 04/14/21 Unknown Urine WBC (Auto) 1.0 /HPF (0.0-6.0) 04/14/21 Unknown Urine RBC (Auto) 1.0 /HPF (0.0-6.0) 04/14/21 Unknown U Epithel Cells (Auto) < 1.0 /HPF (0-13.0) 04/14/21 Unknown Urine Bacteria (Auto) 1+ /HPF (Negative) 04/14/21 Unknown Urine Opiates Screen Negative 04/14/21 Unknown Urine Methadone Screen Negative 04/14/21 Unknown Ur Barbiturates Screen Negative 04/14/21 Unknown Ur Phencyclidine Scrn Negative 04/14/21 Unknown Ur Amphetamines Screen Negative 04/14/21 Unknown U Benzodiazepines Scrn Positive 04/14/21 Unknown Urine Cocaine Screen Negative 04/14/21 Unknown U Marijuana (THC) Screen Negative 04/14/21 Unknown Drugs of Abuse Note Disclamer 04/14/21 Unknown Plasma/Serum Alcohol < 0.01 % (0-0.07) 04/14/21 12:58 Coronavirus (PCR) Negative (Negative) 04/19/21 Unknown Mullins/IV: Voiding Method Toilet Active Medications - Current Medications Current Medications: Generic Name Dose Route Start Last Admin Trade Name Freq PRN Reason Stop Dose Admin Acetaminophen 650 mg 04/14/21 16:00 Acetaminophen 325 Mg Tab PO Q4H PRN Pain MILD(1-3)/Fever >100.5/KRAUSE Albuterol 2.5 mg 04/14/21 16:00 Albuterol 2.5 Mg/3 Ml Nebu IH Q4HRT PRN Shortness Of Breath Aripiprazole 10 mg 04/17/21 10:00 04/20/21 08:59 Aripiprazole 10 Mg Tab PO 10 mg QDAY CATHIE Administration Buprenorphine HCl 8 mg 04/16/21 11:00 04/20/21 09:00 Buprenorphine 2 Mg Tab Subl SL 8 mg BID CATHIE Administration Chlordiazepoxide HCl 10 mg 04/15/21 13:20 04/20/21 09:01 Chlordiazepoxide 5 Mg Cap PO 10 mg Q6H PRN Administration Anxiety Duloxetine HCl 60 mg 04/15/21 12:00 04/20/21 09:00 Duloxetine 30 Mg Cap PO 60 mg QDAY CATHIE Administration Folic Acid 1 mg 04/15/21 10:00 04/20/21 09:00 Folic Acid 1 Mg Tab PO 1 mg QDAY CATHIE Administration Gabapentin 300 mg 04/15/21 14:00 04/20/21 08:59 Gabapentin 300 Mg Cap PO 300 mg TID CATHIE Administration Lorazepam 2 mg 04/14/21 13:13 04/18/21 15:18 Lorazepam 2 Mg/Ml Vial IV 2 mg Q1HR PRN Administration CIWA-Ar 8-15 Lorazepam 4 mg 04/14/21 13:13 04/15/21 20:13 Lorazepam 2 Mg/Ml Vial IV 4 mg Q1HR PRN Administration CIWA-Ar 16-25 Lorazepam 4 mg 04/14/21 13:35 04/14/21 14:53 Lorazepam 2 Mg/Ml Vial IV 4 mg Q15MIN PRN Administration CIWA-Ar >25 Multivitamins 1 each 04/15/21 10:00 04/20/21 09:00 Multivitamins ,Therapeutic Tab PO 1 each QDAY CATHIE Administration Ondansetron HCl 4 mg 04/14/21 16:00 Ondansetron 4 Mg/2 Ml Inj IV Q8H PRN Nausea And Vomiting Sodium Chloride 10 ml 04/14/21 22:00 04/20/21 08:59 Sodium Chloride 0.9% 10 Ml Flush Syringe IV 10 ml BID CATHIE Administration Sodium Chloride 10 ml 04/14/21 16:00 04/15/21 20:14 Sodium Chloride 0.9% 10 Ml Flush Syringe IV 10 ml PRN PRN Administration LINE FLUSH Thiamine HCl 100 mg 04/15/21 10:00 04/20/21 09:01 Thiamine 100 Mg Tab PO 100 mg QDAY CATHIE Administration Trazodone HCl 150 mg 04/15/21 22:00 04/19/21 22:38 Trazodone 50 Mg Tab PO 150 mg QHS CATHIE Administration
--- NOTE | 2021-04-20 19:30 | Progress Note ---
Assessment and Plan Assessment and plan: 45 YO Male with MDD, CASSANDRA, ETOH Dependence presents to ED for evaluation. Patient reports "I tried to kill myself and I think I had a seizure". Patient states that he attempted to hang himself this morning by wrapping cellophane around his neck and tied it to something and jumped off and attempt to take his own life. Patient also reports feeling as if he had a seizure Patient transported to [facility] via private vehicle for further care and evaluation of the aforementioned symptoms. The patient was seen and evaluated in the emergency department. All lab and imaging studies reviewed. The patient was found to be tremulous, with nausea, tangential thinking, and confabulation which is consistent with alcohol withdrawal syndrome. Patient also found to have suicide attempt. Patient placed on 1013 and admitted to medical floor due to increased risk of worsening symptoms. Mental health team consulted in ED. CIWA protocol initiated in the emergency department. Patient denies fever, chills, chest pain, palpitation, productive cough, skin rash, recent contact, known exposure to COVID-19. No prior admission for review. No medication listed at time of admission for reconciliation. Advanced care planning conducted in ED. Mental health team consulted in ED. --COVID-19 test negative 04/19/2021 -- Alcohol withdrawal syndrome, with delirium Current Visit: Yes Status: Acute CIWA protocol: Thiamine, folic acid, multivitamin daily, banana bag, --Suicide attempt by hanging Current Visit: Yes Status: Acute Supportive care, [address], mental health consult placed. babysitter at the bedside --Major depression Current Visit: Yes Status: Acute Plan to address problem: Mental health team consulted. Supportive care, behavior change counseling, -- Generalized anxiety disorder Current Visit: Yes Status: Acute Benzodiazepine therapy as clinically indicated, supportive care. Mental health team consulted. --DVT prophylaxis Current Visit: Yes Status: Acute Plan to address problem: SCDs bilateral lower extremities while in bed, patient is ambulatory --Advance care planning Current Visit: Yes Status: Acute Plan to address problem: Disease education conducted, care plan discussed, diagnoses discussed, prognosis discussed, patient is full code. We will closely monitor the patient and adjust management as needed Discharge planning; awaiting inpatient psych facility placement at [facility] COVID-19 test sent 04/15: Continue supportive care obtain PSYCH AND NEURO CONSULT, monitor for benzo withdrawal continue 1013 until evaluated by psych, will also check a TSH and a free T4 will defer imaging studies to neurologist. 04/16: Patient seen and examined resting comfortably no further seizure activity noted electrolytes are intact and in place Patient seen by Psych recommended inpatient psych treatment patient seen by Neurology, no Seizure meds recommended for etoh induced seizure Patient had uneventful night and is cleared for Discharge to inpatient Psych when Bed is available 04/17: Patient seen and examined, no clinical change, tolerating meds as recommended by Psych, continue 1013, CONTINUE, Increase Abilify 10mg po daily BY PSYCH. Awaiting inpatient Psych placement. 04/18; patient continues to be lethargic, noncommunicative sometimes crying in mild distress, follow psych evaluation and recommendations 04/19; COVID-19 test is negative today, patient clinically stable for discharge, awaiting inpatient psych placement at [facility] 04/20; patient is medically stable for discharge, awaiting inpatient psych placement, discharge planning per case management Hospitalist Physical - Constitutional Vitals: Temp Pulse Resp BP Pulse Ox 98.1 F 81 18 129/109 98 04/20/21 16:16 04/20/21 18:55 04/20/21 16:16 04/20/21 18:55 04/20/21 18:55 General appearance: Present: no acute distress, well-nourished, disheveled Results - Labs CBC & Chem 7: 04/14/21 12:58 04/19/21 05:39 Labs: Laboratory Last Values WBC 6.2 K/mm3 (4.5-11.0) 04/14/21 12:58 RBC 4.26 M/mm3 (3.65-5.03) 04/14/21 12:58 Hgb 13.4 gm/dl (11.8-15.2) 04/14/21 12:58 Hct 40.5 % (35.5-45.6) 04/14/21 12:58 MCV 95 fl (84-94) H 04/14/21 12:58 MCH 31 pg (28-32) 04/14/21 12:58 MCHC 33 % (32-34) 04/14/21 12:58 RDW 13.2 % (13.2-15.2) 04/14/21 12:58 Plt Count 185 K/mm3 (140-440) 04/14/21 12:58 Lymph % (Auto) 21.1 % (13.4-35.0) 04/14/21 12:58 [place] % (Auto) 7.3 % (0.0-7.3) 04/14/21 12:58 Eos % (Auto) 6.3 % (0.0-4.3) H 04/14/21 12:58 Baso % (Auto) 0.8 % (0.0-1.8) 04/14/21 12:58 Lymph # (Auto) 1.3 K/mm3 (1.2-5.4) 04/14/21 12:58 [place] # (Auto) 0.5 K/mm3 (0.0-0.8) 04/14/21 12:58 Eos # (Auto) 0.4 K/mm3 (0.0-0.4) 04/14/21 12:58 Baso # (Auto) 0.1 K/mm3 (0.0-0.1) 04/14/21 12:58 Seg Neutrophils % 64.5 % (40.0-70.0) 04/14/21 12:58 Seg Neutrophils # 4.0 K/mm3 (1.8-7.7) 04/14/21 12:58 Sodium 141 mmol/L (137-145) 04/19/21 05:39 Potassium 4.4 mmol/L (3.6-5.0) 04/19/21 05:39 Chloride 102.8 mmol/L (98-107) 04/19/21 05:39 Carbon Dioxide 29 mmol/L (22-30) 04/19/21 05:39 Anion Gap 14 mmol/L 04/19/21 05:39 BUN 14 mg/dL (9-20) 04/19/21 05:39 Creatinine 0.7 mg/dL (0.8-1.3) L 04/19/21 05:39 Estimated GFR > 60 ml/min 04/19/21 05:39 BUN/Creatinine Ratio 20 % 04/19/21 05:39 Glucose 91 mg/dL (75-100) 04/19/21 05:39 Calcium 8.6 mg/dL (8.4-10.2) 04/19/21 05:39 Phosphorus 3.80 mg/dL (2.5-4.5) 04/19/21 05:39 Magnesium 2.10 mg/dL (1.7-2.3) 04/19/21 05:39 TSH 2.550 mlU/mL (0.270-4.200) 04/16/21 05:32 Free T4 1.16 ng/dL (0.76-1.46) 04/16/21 05:32 Urine Color Yellow (Yellow) 04/14/21 Unknown Urine Turbidity Clear (Clear) 04/14/21 Unknown Urine pH 6.0 (5.0-7.0) 04/14/21 Unknown Ur Specific [place] 1.014 (1.003-1.030) 04/14/21 Unknown Urine Protein <15 mg/dl mg/dL (Negative) 04/14/21 Unknown Urine Glucose (UA) Neg mg/dL (Negative) 04/14/21 Unknown Urine Ketones Neg mg/dL (Negative) 04/14/21 Unknown Urine Blood Neg (Negative) 04/14/21 Unknown Urine Nitrite Neg (Negative) 04/14/21 Unknown Urine Bilirubin Neg (Negative) 04/14/21 Unknown Urine Urobilinogen 4.0 mg/dL (<2.0) 04/14/21 Unknown Ur Leukocyte Esterase Neg (Negative) 04/14/21 Unknown Urine WBC (Auto) 1.0 /HPF (0.0-6.0) 04/14/21 Unknown Urine RBC (Auto) 1.0 /HPF (0.0-6.0) 04/14/21 Unknown U Epithel Cells (Auto) < 1.0 /HPF (0-13.0) 04/14/21 Unknown Urine Bacteria (Auto) 1+ /HPF (Negative) 04/14/21 Unknown Urine Opiates Screen Negative 04/14/21 Unknown Urine Methadone Screen Negative 04/14/21 Unknown Ur Barbiturates Screen Negative 04/14/21 Unknown Ur Phencyclidine Scrn Negative 04/14/21 Unknown Ur Amphetamines Screen Negative 04/14/21 Unknown U Benzodiazepines Scrn Positive 04/14/21 Unknown Urine Cocaine Screen Negative 04/14/21 Unknown U Marijuana (THC) Screen Negative 04/14/21 Unknown Drugs of Abuse Note Disclamer 04/14/21 Unknown Plasma/Serum Alcohol < 0.01 % (0-0.07) 04/14/21 12:58 Coronavirus (PCR) Negative (Negative) 04/19/21 Unknown Mullins/IV: Voiding Method Toilet Active Medications - Current Medications Current Medications: Generic Name Dose Route Start Last Admin Trade Name Freq PRN Reason Stop Dose Admin Acetaminophen 650 mg 04/14/21 16:00 Acetaminophen 325 Mg Tab PO Q4H PRN Pain MILD(1-3)/Fever >100.5/KRAUSE Albuterol 2.5 mg 04/14/21 16:00 Albuterol 2.5 Mg/3 Ml Nebu IH Q4HRT PRN Shortness Of Breath Aripiprazole 10 mg 04/17/21 10:00 04/20/21 08:59 Aripiprazole 10 Mg Tab PO 10 mg QDAY CATHIE Administration Buprenorphine HCl 8 mg 04/16/21 11:00 04/20/21 09:00 Buprenorphine 2 Mg Tab Subl SL 8 mg BID CATHIE Administration Chlordiazepoxide HCl 10 mg 04/15/21 13:20 04/20/21 14:36 Chlordiazepoxide 5 Mg Cap PO 10 mg Q6H PRN Administration Anxiety Duloxetine HCl 60 mg 04/15/21 12:00 04/20/21 09:00 Duloxetine 30 Mg Cap PO 60 mg QDAY CATHIE Administration Folic Acid 1 mg 04/15/21 10:00 04/20/21 09:00 Folic Acid 1 Mg Tab PO 1 mg QDAY CATHIE Administration Gabapentin 300 mg 04/15/21 14:00 04/20/21 14:36 Gabapentin 300 Mg Cap PO 300 mg TID CATHIE Administration Lorazepam 2 mg 04/14/21 13:13 04/18/21 15:18 Lorazepam 2 Mg/Ml Vial IV 2 mg Q1HR PRN Administration CIWA-Ar 8-15 Lorazepam 4 mg 04/14/21 13:13 04/15/21 20:13 Lorazepam 2 Mg/Ml Vial IV 4 mg Q1HR PRN Administration CIWA-Ar 16-25 Lorazepam 4 mg 04/14/21 13:35 04/14/21 14:53 Lorazepam 2 Mg/Ml Vial IV 4 mg Q15MIN PRN Administration CIWA-Ar >25 Multivitamins 1 each 04/15/21 10:00 04/20/21 09:00 Multivitamins ,Therapeutic Tab PO 1 each QDAY CATHIE Administration Ondansetron HCl 4 mg 04/14/21 16:00 Ondansetron 4 Mg/2 Ml Inj IV Q8H PRN Nausea And Vomiting Sodium Chloride 10 ml 04/14/21 22:00 04/20/21 16:16 Sodium Chloride 0.9% 10 Ml Flush Syringe IV Not Given BID CATHIE Sodium Chloride 10 ml 04/14/21 16:00 04/15/21 20:14 Sodium Chloride 0.9% 10 Ml Flush Syringe IV 10 ml PRN PRN Administration LINE FLUSH Thiamine HCl 100 mg 04/15/21 10:00 04/20/21 09:01 Thiamine 100 Mg Tab PO 100 mg QDAY CATHIE Administration Trazodone HCl 150 mg 04/15/21 22:00 04/19/21 22:38 Trazodone 50 Mg Tab PO 150 mg QHS CATHIE Administration
[2021-04-20] MEDS: traZODone 50 MG TAB PO SCH (22:37)
[2021-04-21] MEDS: ARIPiprazole 10 MG TAB PO SCH (09:32)
[2021-04-21] MEDS: MULTIVITAMINS ,THERAPEUTIC TAB PO SCH (09:32)
[2021-04-21] MEDS: GABAPENTIN 300 MG CAP PO SCH ×2 (09:32→13:25)
[2021-04-21] MEDS: FOLIC ACID 1 MG TAB PO SCH (09:32)
[2021-04-21] MEDS: THIAMINE 100 MG TAB PO SCH (09:32)
[2021-04-21] MEDS: DULoxetine 30 MG CAP PO SCH (09:32)
[2021-04-21] MEDS: buprenorphine 2 MG TAB SUBL SL SCH (09:33)
[2021-04-21 11:34] VITALS: BP 120/70
--- NOTE | 2021-04-21 12:48 | Discharge Summary ---
Providers - Providers Date of Admission: 04/14/21 15:52 Date of discharge: 04/21/21 Attending physician: BELINDA GORDON 04/15/21 08:02 Consult to Physician [CONS] Routine Comment: Consulting Provider: NICOLA ARCOS Physician Instructions: Reason For Exam: SUICIDAL IDEATION 04/15/21 08:03 Consult to Physician [CONS] Routine Comment: Consulting Provider: MOJGAN CARDONA Physician Instructions: Reason For Exam: SEIZURE 04/15/21 09:13 Consult to Mental Health [CONS] Routine Reason For Exam: SUICIDUAL IDEATION Primary care physician: CUT PLUG PACKER Hospitalization Reason for admission: Suicidal ideation/withdrawal seizure Condition: Stable Hospital course: 45 YO Male with MDD, CASSANDRA, ETOH Dependence presents to ED for evaluation. Patient reports "I tried to kill myself and I think I had a seizure". Patient states that he attempted to hang himself this morning by wrapping cellophane around his neck and tied it to something and jumped off and attempt to take his own life. Patient also reports feeling as if he had a seizure Patient transported to [facility] via private vehicle for further care and evaluation of the aforementioned symptoms. The patient was seen and evaluated in the emergency department. All lab and imaging studies reviewed. The patient was found to be tremulous, with nausea, tangential thinking, and confabulation which is consistent with alcohol withdrawal syndrome. Patient also found to have suicide attempt. Patient placed on 1013 and admitted to medical floor due to increased risk of worsening symptoms. Mental health team consulted in ED. CIWA protocol initiated in the emergency department. Patient denies fever, chills, chest pain, palpitation, productive cough, skin rash, recent contact, known exposure to COVID-19. No prior admission for review. No medication listed at time of admission for reconciliation. Advanced care planning conducted in ED. Mental health team consulted in ED. patient was placed on 1013 status, psych followed every day and optimize medications Recommended inpatient psych facility placement Today patient is hemodynamically and clinically stable for discharge to inpatient psych facility for further evaluation and management Discharge diagnosis; --COVID-19 test negative 04/19/2021 -- Alcohol withdrawal syndrome, with delirium/resolved s/p CIWA protocol: Thiamine, folic acid, multivitamin daily, banana bag, --Suicide attempt by hanging/patient 1013 status Supportive care, [address], mental health consult placed. heating equipment installer at the bedside --Major depression Mental health team optimize the medications -- Generalized anxiety disorder Management per psych --DVT prophylaxis SCDs bilateral lower extremities while in bed, patient is ambulatory --Advance care planning Plan of care reviewed with the patient and his nurse COVID-19 test is negative Patient is being discharged today [facility] Final Discharge Diagnosis (Prints w/discharge instructions): COVID-19 test negative. Alcohol withdrawal symptoms resolved. Delirium resolved. Suicidal attempt by hanging/1013 status. Major depression. Generalized anxiety disorder Time spent for discharge: 40 min Core Measure Documentation - Palliative Care Palliative Care/ Comfort Measures: Not Applicable - Core Measures Any of the following diagnoses?: none Exam - Constitutional Vitals: Temp Pulse Resp BP Pulse Ox 98.5 F 80 18 120/70 89 04/21/21 11:29 04/21/21 11:28 04/21/21 11:29 04/21/21 11:28 04/21/21 11:28 General appearance: Present: no acute distress, well-nourished - EENT Eyes: Present: PERRL, EOM intact - Neck Neck: Present: supple, normal ROM - Respiratory Respiratory effort: normal Respiratory: bilateral: diminished, negative: rales, rhonchi, wheezing - Cardiovascular Rhythm: regular Heart Sounds: Present: S1 & S2 - Extremities Extremities: no ischemia, No edema - Abdominal General gastrointestinal: Present: soft, non-tender, non-distended, normal bowel sounds - Integumentary Integumentary: Present: clear, warm - Musculoskeletal Musculoskeletal: strength equal bilaterally, generalized weakness - Psychiatric Psychiatric: appropriate mood/affect - Neurologic Neurologic: moves all extremities Plan Activity: advance as tolerated, other (1013 status) Diet: regular Additional Instructions: Patient is being transferred to inpatient psych facility for further evaluation and management. 1013 status Follow up with: LIANG COLIN MD [Primary Care Provider] - 7 Days NICOLA ARCOS MD [Staff Physician] - 7 Days Prescriptions: ARIPiprazole [Abilify TAB] 10 mg PO QDAY #30 tablet Folic Acid [Folvite] 1 mg PO QDAY #30 tablet Gabapentin 300 mg PO TID #90 capsule Thiamine [Vitamin B-1] 100 mg PO QDAY #30 tablet
== END 2021-04-21 14:52 | DRG 897 ==
LOC: ED 12:43 → 3A 15:52
PROVIDERS: ADMIT Internal Medicine; ATTEND Internal Medicine
DX: F10.231 Alcohol dependence with withdrawal delirium (principal); R45.851 Suicidal ideations; F32.9 Major depressive disorder, single episode, unspecified; Z82.49 Family history of ischemic heart disease and other diseases of the circulatory system; F41.1 Generalized anxiety disorder; Z20.822 Contact with and (suspected) exposure to COVID-19
CPT/HCPCS: 36415; 80048; 80307; 80320; 81001; 83735; 84100; 84439; 84443; 85025; 99291; G0378; J3490; Q0162; G0480; J2060; J3411; J3486; J7030; U0003

== ENCOUNTER 2021-04-22 11:42 | Emergency (ER) | payer OTHER ==
[2021-04-22] MEDS ORDERED: LORazepam 2 MG/ML VIAL IV PRN ×3 (12:18)
--- NOTE | 2021-04-22 12:23 | Emergency Department Report ---
ED Alcohol HPI - General Chief Complaint: Seizure Stated Complaint: POSSIBLE SEIZURE Time Seen by Provider: 04/22/21 12:05 Source: EMS Mode of arrival: Stretcher Limitations: No Limitations - History of Present Illness Initial Comments: Patient is 45 years old male with history of chronic alcoholism. Patient was transferred from this hospital to [facility] for alcohol detox and suicidal ideation. Patient brought to the emergency room for evaluation of possible seizure. [facility] staff stated that there is an witnessed seizure. Patient stated that several patient saw him having a seizure. Patient denied any injury. Patient with significant tremor and shaking. He denied visual hallucination. MD Complaint: alcohol withdrawal Chronic Alcohol Use: Yes Previous Visits for Alcohol Intoxication?: Yes Recent Trauma: No Associated Symptoms: seizure, tremors Treatments Prior to Arrival: none - Related Data Home Medications Medication Instructions Recorded Confirmed Last Taken Atorvastatin (Nf) 100 mg HS 04/15/21 04/15/21 Unknown Duloxetine HCl [Cymbalta] 60 mg PO 04/15/21 04/14/21 09:00 buprenorphine hcl [Subutex] 8 mg BID 04/15/21 04/15/21 04/12/21 Previous Rx's Medication Instructions Recorded Last Taken Type Folic Acid [Folvite] 1 mg PO QDAY #30 tablet 04/16/21 Unknown Rx Gabapentin 300 mg PO TID #90 capsule 04/16/21 Unknown Rx Multivitamin Tab [Multiple Vitamin 1 each PO QDAY tablet 04/16/21 Unknown Rx TAB (Theragran)] Thiamine [Vitamin B-1] 100 mg PO QDAY #30 tablet 04/16/21 Unknown Rx ARIPiprazole [Abilify TAB] 10 mg PO QDAY #30 tablet 04/21/21 Unknown Rx Allergies Allergy/AdvReac Type Severity Reaction Status Date / Time haloperidol [From Haldol] Allergy Swelling Verified 04/14/21 12:50 hydroxyzine [From Vistaril] AdvReac Hives Verified 04/14/21 12:50 ED Review of Systems ROS: Stated complaint: POSSIBLE SEIZURE Other details as noted in HPI Comment: All other systems reviewed and negative Constitutional: denies: chills, fever Respiratory: denies: cough, shortness of breath, SOB with exertion Cardiovascular: denies: chest pain, palpitations Gastrointestinal: denies: abdominal pain, nausea, vomiting Musculoskeletal: denies: back pain Neurological: denies: headache, weakness, numbness, paresthesias, confusion Psychiatric: anxiety. denies: auditory hallucinations, visual hallucinations, homicidal thoughts ED Past Medical Hx - Past Medical History Hx Hypertension: Yes Hx Congestive Heart Failure: No Hx Diabetes: No Hx Asthma: No Hx COPD: No Hx HIV: No - Social History Smoking Status: Current Every Day Smoker - Medications Home Medications: Home Medications Medication Instructions Recorded Confirmed Last Taken Type Atorvastatin (Nf) 100 mg HS 04/15/21 04/15/21 Unknown History Duloxetine HCl [Cymbalta] 60 mg PO 04/15/21 04/14/21 09:00 History buprenorphine hcl [Subutex] 8 mg BID 04/15/21 04/15/21 04/12/21 History Folic Acid [Folvite] 1 mg PO QDAY #30 tablet 04/16/21 Unknown Rx Gabapentin 300 mg PO TID #90 capsule 04/16/21 Unknown Rx Multivitamin Tab [Multiple Vitamin 1 each PO QDAY tablet 04/16/21 Unknown Rx TAB (Theragran)] Thiamine [Vitamin B-1] 100 mg PO QDAY #30 tablet 04/16/21 Unknown Rx ARIPiprazole [Abilify TAB] 10 mg PO QDAY #30 tablet 04/21/21 Unknown Rx ED Physical Exam - General Limitations: No Limitations General appearance: alert, in no apparent distress, anxious - Head Head exam: Present: atraumatic, normocephalic, normal inspection - Eye Eye exam: Present: normal appearance - ENT ENT exam: Present: normal exam, normal orophraynx, mucous membranes moist - Neck Neck exam: Present: normal inspection, full ROM. Absent: tenderness, meningismus - Respiratory Respiratory exam: Present: normal lung sounds bilaterally - Cardiovascular Cardiovascular Exam: Present: regular rate, normal rhythm, normal heart sounds - GI/Abdominal GI/Abdominal exam: Present: soft, normal bowel sounds. Absent: distended, tenderness, guarding, rebound, rigid, organomegaly, mass, bruit, pulsatile mass, hernia - Extremities Exam Extremities exam: Present: normal inspection, full ROM, normal capillary refill. Absent: tenderness - Back Exam Back exam: Present: normal inspection, full ROM. Absent: CVA tenderness (R), CVA tenderness (L) - Neurological Exam Neurological exam: Present: alert, oriented X3, CN II-XII intact, normal gait, reflexes normal. Absent: motor sensory deficit - Psychiatric Psychiatric exam: Present: depressed, anxious. Absent: homicidal ideation, suicidal ideation - Skin Skin exam: Present: warm, intact, normal color ED Course Vital Signs 04/22/21 04/22/21 12:03 14:25 Temperature 98.0 F Pulse Rate 69 72 Respiratory 16 15 Rate Blood Pressure 126/83 129/92 [Left] O2 Sat by Pulse 97 97 Oximetry ED Medical Decision Making - Medical Decision Making Patient is 45 years old male with history of chronic alcoholism. Patient was transferred from this hospital to [facility] for alcohol detox and suicidal ideation. Patient brought to the emergency room for evaluation of possible seizure. [facility] staff stated that there is an witnessed seizure. Patient stated that several patient saw him having a seizure. Patient denied any injury. Patient with significant tremor and shaking. He denied visual hallucination. No seizure activity observed in the ER. [facility] staff reported unwitnessed seizure. Patient received Ativan 2 mg and patient will be returned back to [facility] for the continuation of his alcohol detoxification program. Critical care attestation.: If time is entered above; I have spent that time in minutes in the direct care of this critically ill patient, excluding procedure time. ED Disposition Clinical Impression: Chronic alcoholism Disposition: [address] [place] [address] Is pt being admited?: No Condition: Stable Instructions: Alcohol Abuse and Dependence Information, Adult Referrals: PRIMARY CARE [Primary Care Provider] - 3-5 Days
[2021-04-22 14:26] VITALS: BP 129/92
[2021-04-22 14:39] LABS: Basophils % (Auto) 0.7 % (0.0-1.8); Eosinophils # (Auto) 0.5 K/mm3 (0.0-0.4); Eosinophils % (Auto) 7.4 % (0.0-4.3); Hematocrit 45.6 % (35.5-45.6); Lymphocytes # (Auto) 1.8 K/mm3 (1.2-5.4); Lymphocytes % (Auto) 26.5 % (13.4-35.0); Mean Corpuscular HGB Conc 33 % (32-34); Mean Corpuscular Volume 95 fl (84-94); Monocytes # (Auto) 0.6 K/mm3 (0.0-0.8); Monocytes % (Auto) 8.6 % (0.0-7.3); Platelet Count 193 K/mm3 (140-440); Red Blood Count 4.78 M/mm3 (3.65-5.03); Red Cell Distribution Width 13.2 % (13.2-15.2)
[2021-04-22 14:52] LABS: Blood Urea Nitrogen 13 mg/dL (9-20); Hemolysis Index 10
[2021-04-22 14:56] LABS: Alanine Aminotransferase 19 units/L (7-56); Albumin 4.3 g/dL (3.9-5)
[2021-04-22 14:58] LABS: BUN/Creatinine Ratio 22
[2021-04-22 14:59] LABS: Bilirubin,Direct < 0.2 mg/dL (0-0.2)
== END 2021-04-22 17:31 ==
LOC: ED 11:42
DX: F10.288 Alcohol dependence with other alcohol-induced disorder (principal); R56.9 Unspecified convulsions; I10 Essential (primary) hypertension; F17.200 Nicotine dependence, unspecified, uncomplicated; Z88.8 Allergy status to other drugs, medicaments and biological substances; Z79.899 Other long term (current) drug therapy; Y90.9 Presence of alcohol in blood, level not specified
CPT/HCPCS: 36415; 80048; 80076; 84132; 85025; 96374; 99283; J2060; 80320; G0480

== ENCOUNTER 2021-06-18 17:24 | Emergency (ER) | payer OTHER ==
[2021-06-18] MEDS ORDERED: LORazepam 1 MG TAB PO ONE (20:13)
--- NOTE | 2021-06-18 20:26 | Emergency Department Report ---
ED Psych HPI - General Chief Complaint: Psych Stated Complaint: SUICIDE ATTEMPT Time Seen by Provider: 06/18/21 20:12 Source: patient, EMS Mode of arrival: Ambulatory - History of Present Illness Initial Comments: Patient bought in by EMS for SI. Patient stated at first he dislocated his shoulder, but after further questioning he stated he did it on purpose. patient was bought to room 15. Complaint: suicidal ideation -: Gradual, days(s) Associated Psychiatric Symptoms: suicidal ideation History of same: No Quality: constant - Related Data Home Medications Medication Instructions Recorded Confirmed Last Taken Atorvastatin (Nf) 100 mg HS 04/15/21 04/15/21 Unknown Duloxetine HCl [Cymbalta] 60 mg PO 04/15/21 04/14/21 09:00 buprenorphine hcl [Subutex] 8 mg BID 04/15/21 04/15/21 04/12/21 Previous Rx's Medication Instructions Recorded Last Taken Type Folic Acid [Folvite] 1 mg PO QDAY #30 tablet 04/16/21 Unknown Rx Gabapentin 300 mg PO TID #90 capsule 04/16/21 Unknown Rx Multivitamin Tab [Multiple Vitamin 1 each PO QDAY tablet 04/16/21 Unknown Rx TAB (Theragran)] Thiamine [Vitamin B-1] 100 mg PO QDAY #30 tablet 04/16/21 Unknown Rx ARIPiprazole [Abilify TAB] 10 mg PO QDAY #30 tablet 04/21/21 Unknown Rx Allergies Allergy/AdvReac Type Severity Reaction Status Date / Time haloperidol [From Haldol] Allergy Swelling Verified 04/14/21 12:50 hydroxyzine [From Vistaril] AdvReac Hives Verified 04/14/21 12:50 ED Review of Systems ROS: Stated complaint: SUICIDE ATTEMPT Other details as noted in HPI Constitutional: denies: chills, fever Eyes: denies: eye pain, eye discharge, vision change ENT: denies: ear pain, throat pain Respiratory: denies: cough, shortness of breath, wheezing Cardiovascular: denies: chest pain, palpitations Endocrine: no symptoms reported Gastrointestinal: denies: abdominal pain, nausea, diarrhea Genitourinary: denies: urgency, dysuria Musculoskeletal: denies: back pain, joint swelling, arthralgia Skin: denies: rash, lesions Neurological: denies: headache, weakness, paresthesias Psychiatric: denies: anxiety, depression Hematological/Lymphatic: denies: easy bleeding, easy bruising ED Past Medical Hx - Past Medical History Hx Hypertension: Yes Hx Congestive Heart Failure: No Hx Diabetes: No Hx Asthma: No Hx COPD: No Hx HIV: No - Social History Smoking Status: Current Every Day Smoker - Medications Home Medications: Home Medications Medication Instructions Recorded Confirmed Last Taken Type Atorvastatin (Nf) 100 mg HS 04/15/21 04/15/21 Unknown History Duloxetine HCl [Cymbalta] 60 mg PO 04/15/21 04/14/21 09:00 History buprenorphine hcl [Subutex] 8 mg BID 04/15/21 04/15/21 04/12/21 History Folic Acid [Folvite] 1 mg PO QDAY #30 tablet 04/16/21 Unknown Rx Gabapentin 300 mg PO TID #90 capsule 04/16/21 Unknown Rx Multivitamin Tab [Multiple Vitamin 1 each PO QDAY tablet 04/16/21 Unknown Rx TAB (Theragran)] Thiamine [Vitamin B-1] 100 mg PO QDAY #30 tablet 04/16/21 Unknown Rx ARIPiprazole [Abilify TAB] 10 mg PO QDAY #30 tablet 04/21/21 Unknown Rx ED Physical Exam - General Limitations: No Limitations General appearance: alert, in no apparent distress - Head Head exam: Present: atraumatic, normocephalic - Eye Eye exam: Present: normal appearance - ENT ENT exam: Present: mucous membranes moist - Neck Neck exam: Present: normal inspection - Respiratory Respiratory exam: Present: normal lung sounds bilaterally. Absent: respiratory distress - Cardiovascular Cardiovascular Exam: Present: regular rate, normal rhythm. Absent: systolic murmur, diastolic murmur, rubs, gallop - GI/Abdominal GI/Abdominal exam: Present: soft, normal bowel sounds - Rectal Rectal exam: Present: deferred - Extremities Exam Extremities exam: Present: normal inspection - Back Exam Back exam: Present: normal inspection - Neurological Exam Neurological exam: Present: alert, oriented X3 - Psychiatric Psychiatric exam: Present: normal mood, depressed, anxious - Skin Skin exam: Present: warm, dry, intact, normal color. Absent: rash ED Course Vital Signs 06/18/21 06/18/21 06/19/21 21:00 22:00 14:41 Temperature 97.8 F Pulse Rate 114 H 96 H Respiratory 20 20 18 Rate Blood Pressure 148/100 126/96 [Right] O2 Sat by Pulse 96 96 100 Oximetry 06/19/21 06/20/21 06/20/21 20:17 02:33 07:51 Temperature 98.6 F 98.3 F 98.6 F Pulse Rate 89 104 H 93 H Respiratory 18 18 18 Rate Blood Pressure 170/92 145/99 175/114 [Right] O2 Sat by Pulse 98 96 95 Oximetry 06/20/21 06/20/21 11:21 20:22 Temperature 97.6 F 98.7 F Pulse Rate 89 70 Respiratory 18 18 Rate Blood Pressure 123/98 112/66 [Right] O2 Sat by Pulse 98 96 Oximetry ED Medical Decision Making - Lab Data Result diagrams: 06/18/21 20:14 06/18/21 20:14 Critical care attestation.: If time is entered above; I have spent that time in minutes in the direct care of this critically ill patient, excluding procedure time. ED Disposition Clinical Impression: Suicidal ideations Disposition: [address] [place] [address] Is pt being admited?: No Does the pt Need Aspirin: No Condition: Stable Additional Instructions: In case of an emergency, please contact the following numbers: [place] Crisis and Access Line: Number: Crisis Text Line: (Text START) Number: 100510 Suicide Prevention Line: Number: Emergency Number: 911 SUBSTANCE ABUSE PROGRAMS: Sober Living [facility]: Location: [place], [place] [facility] Address: [address] [place] [address] [facility] Recovery: Address: [address] [place] [address] [facility]: Address: [address] [place] [address] [facility] Community: Address: [address] [place] [address] [facility] Address: [address] [place] [address]. OUTPATIENT MENTAL HEALTH RESOURCES [facility], [facility] Samina Diamond MD: [address], [address] [place] [address] [place] [address] [facility]: [facility] [address] [place] [address] [place] [address] [phone] [facility]: [facility] Healthcare: [address] [facility] [address] [place] [address] [facility] [address] [facility]: Maurice Becker MD: [address] [facility] [address] [facility] [id number] [facility]: [address] [place] [address] [phone] [place] CRISIS AND ACCESS LINE: Professional and Agency Contacts To help Resolve Crises (30/11) [place] Crisis Line: Suicide Prevention Line: Crisis Text Line: Text START to 484769 Emergency: 911 Outpatient COMMUNITY Behavioral Health Resources: [place]: [facility] [address] [place], [place] [address] [facility] [address] [place] [address] Wednesday thru Wednesday - 8am - 5pm Call to schedule an assessment for mental health and substance abuse programs MARIO: [facility] Address: [address] [place] [address] Wednesday thru Wednesday- 7am-2pm [facility] Address: [address] [place], [place] [address]Wednesday thru Wednesday: 8:30AM-5PM Referrals: PRIMARY CARE, [Primary Care Provider] - 3-5 Days
[2021-06-18 20:44] LABS: Basophils # (Auto) 0.1 K/mm3 (0.0-0.1); Basophils % (Auto) 0.8 % (0.0-1.8); Eosinophils # (Auto) 0.2 K/mm3 (0.0-0.4); Eosinophils % (Auto) 3.1 % (0.0-4.3); Hematocrit 48.7 % (35.5-45.6); Hemoglobin 16.2 gm/dl (11.8-15.2); Lymphocytes # (Auto) 2.2 K/mm3 (1.2-5.4); Lymphocytes % (Auto) 30.1 % (13.4-35.0); Mean Corpuscular HGB Conc 33 % (32-34); Mean Corpuscular Volume 92 fl (84-94); Monocytes # (Auto) 0.5 K/mm3 (0.0-0.8); Monocytes % (Auto) 6.8 % (0.0-7.3); Platelet Count 230 K/mm3 (140-440); Red Blood Count 5.32 M/mm3 (3.65-5.03); Red Cell Distribution Width 12.9 % (13.2-15.2)
[2021-06-18 21:03] LABS: BUN/Creatinine Ratio 23; Blood Urea Nitrogen 18 mg/dL (9-20); Calcium 9.5 mg/dL (8.4-10.2); Hemolysis Index 21
--- NOTE | 2021-06-18 21:12 | XRay Report ---
Left shoulder, 4 views HISTORY: Pain after injury COMPARISON: None FINDINGS: The humeral head projects over the posterior aspect of the glenohumeral joint on scapular Y view. Thi s could be projectional. Recommend dedicated axillary view, if there is concern for glenohumeral join t dislocation. There is no acute fracture. Left AC joint is intact. Soft tissues are unremarkable. Vi sualized lungs are clear. Signer Name: Ramírez Velez MD Signed: 06/18/2021 9:07 PM Workstation Name: [id number]
[2021-06-19] MEDS ORDERED: LORazepam 2 MG TAB PO PRN (00:06)
[2021-06-19] MEDS: LORazepam 2 MG TAB PO PRN ×3 (01:07→19:47)
--- NOTE | 2021-06-19 03:04 | XRay Report ---
LEFT SHOULDER 1 VIEW(S) INDICATION / CLINICAL INFORMATION: Repeat xray per radiologist. COMPARISON: None available. FINDINGS: BONES / JOINT(S): No acute fracture or subluxation. No significant arthritis. SOFT TISSUES: No significant abnormality. ADDITIONAL FINDINGS: None. IMPRESSION: 1. No acute findings. No significant abnormality. Signer Name: Fidel Cyr II, MD Signed: 06/19/2021 3:00 AM Workstation Name: [id number]
[2021-06-19 08:31] LABS: Bilirubin,Urine NEG (Negative); Blood,Urine NEG (Negative); Color,Urine Yellow (Yellow); Mucus,Urine FEW /HPF; Protein,Urine <15 mg/dL mg/dL (Negative)
[2021-06-19 08:39] LABS: Amphetamine Screen,Urine Negative; Cannabinoid Screen,Urine Negative; Cocaine Screen,Urine Negative; Methadone Screen,Urine Negative; Opiate Screen,Urine Negative
[2021-06-19 08:54] LABS: Benzodiazepines Screen,Urine Positive
--- NOTE | 2021-06-19 09:57 | Consultation ---
History of Present Illness - Reason for Consult Consult date: 06/19/21 Reason for consult: suicidal ideation - History of Present Psychiatric Illness ED Note: Patient bought in by EMS for SI. Patient stated at first he dislocated his shoulder, but after further questioning he stated he did it on purpose. patient was bought to room 15. The patient is a 45 year old male with history of Bipolar and alcohol dependence. In my interview with the patient, he is calm, alert and orientx 3. The patient endorses depression, became tearful stating that his sister about a bout ago. The patient reports daily alcohol use stating that he consumes 24 bottles " a case" of beer daily. He reports that he has been drinking for about 5 years now,"I have just been drinking and it turned into a habit." He states longest sobriety period as 1 year. No withdrawal symptoms noted. the patient endorses suicidal ideation without a plan and denies halluconations. PAST PSYCHIATRIC HISTORY: Diagnoses: Bipolar Suicide attempts or Self-harm behavior: Denies Prior psychiatric hospitalizations: Denies Substance Abuse history: Alcohol Previous psychiatric medications tried: cymbalta, neurontin, trazodone Outpatient treatment: Denies PAST MEDICAL HISTORY: None reported or document Family Psychiatric History: None reported or documented SOCIAL HISTORY Marital Status: Single Living Arrangements: with a friend Employment Status: Unemployed Access to guns/weapons: Denies Education: History of Abuse: Denies Legal History: Denies REVIEW OF SYSTEMS Constitutional: Negative for weight loss ENT: Negative for stridor Respiratory: Negative for cough or hemoptysis All other systems reviewed and are negative MENTAL STATUS EXAMINATION General Appearance and Behavior: Age appropriate, good hygiene, wearing approp riate clothes. calm, cooperative Cooperation: cooperative Psychomotor Behavior: Psychomotor normal Mood: Depressed Affect and affective range: congruent with stated mood, tearful Thought Process: goal directed Thought Content: Suicidal Speech: normal tone and pace Suicidal Ideation: Yes Homicidal Ideation: Denies Hallucinations: Denies Delusions: None elicited Impulse Control: Limited Insight and Judgment: Limited Memory: limited Attention: Attentive Orientation: alert and oriented Assessment and Plan (1) Bipolar Disorder (2) Alcohol Dependence Treatment Plan 1013 Restarted home meds Continue CIWA Sitter: per primary Medical: per medical Disposition: Recommend acute psychiatric inpatient treatment Will follow. Thanks Case staffed with Dr. Carlos Medications and Allergies Medications and Allergies Allergies Allergy/AdvReac Type Severity Reaction Status Date / Time haloperidol [From Haldol] Allergy Swelling Verified 04/14/21 12:50 hydroxyzine [From Vistaril] AdvReac Hives Verified 04/14/21 12:50 Home Medications Medication Instructions Recorded Confirmed Last Taken Type Atorvastatin (Nf) 100 mg HS 04/15/21 04/15/21 Unknown History Duloxetine HCl [Cymbalta] 60 mg PO 04/15/21 04/14/21 09:00 History buprenorphine hcl [Subutex] 8 mg BID 04/15/21 04/15/21 04/12/21 History Folic Acid [Folvite] 1 mg PO QDAY #30 tablet 04/16/21 Unknown Rx Gabapentin 300 mg PO TID #90 capsule 04/16/21 Unknown Rx Multivitamin Tab [Multiple Vitamin 1 each PO QDAY tablet 04/16/21 Unknown Rx TAB (Theragran)] Thiamine [Vitamin B-1] 100 mg PO QDAY #30 tablet 04/16/21 Unknown Rx ARIPiprazole [Abilify TAB] 10 mg PO QDAY #30 tablet 04/21/21 Unknown Rx Active Meds: Active Medications Lorazepam (Lorazepam 2 Mg Tab) 2 mg PO Q1HR PRN PRN Reason: CIWA-Ar 8-15 Last Admin: 06/19/21 05:02 Dose: 2 mg Lorazepam (Lorazepam 2 Mg Tab) 4 mg PO Q1HR PRN PRN Reason: CIWA-Ar 16-25 Mental Status Exam - Vital signs Last Vital Signs Temp 97.8 F 06/18/21 21:00 Pulse 114 H 06/18/21 21:00 Resp 20 06/18/21 22:00 BP 148/100 06/18/21 21:00 Pulse Ox 96 06/18/21 22:00 Results Result Diagrams: 06/18/21 20:14 06/18/21 20:14 Abnormal lab results 06/18/21 06/18/21 06/18/21 Range/Units 20:14 20:14 20:14 RBC 5.32 H (3.65-5.03) M/mm3 Hgb 16.2 H (11.8-15.2) gm/dl Hct 48.7 H (35.5-45.6) % RDW 12.9 L (13.2-15.2) % Salicylates < 0.3 L (2.8-20.0) mg/dL Acetaminophen 5.0 L (10.0-30.0) ug/mL All other labs normal.
[2021-06-19] MEDS ORDERED: NON-FORMULARY EACH (Duloxetine Hcl [Cymbalta] 60 MG Capsule.Dr) PO SCH (10:00)
[2021-06-19] MEDS ORDERED: THIAMINE 100 MG TAB PO SCH (11:00)
[2021-06-19] MEDS ORDERED: ARIPiprazole 10 MG TAB PO SCH (11:00)
--- NOTE | 2021-06-19 11:58 | Event Note ---
Mr. Jackman is medically clear for psychiatric care. Awaiting placement at inpatient psychiatric center.
--- NOTE | 2021-06-19 19:40 | Event Note ---
I evaluated patient. Patient states that I am going to withdrawal. He fell to the ground without significant head trauma. I asked the nurse to review MAR. It does not appear that patient received benzodiazepine today. I requested patient to have 2 mg of oral Ativan.
[2021-06-19] MEDS ORDERED: ONDANSETRON 4 MG ODT TAB PO ONE (19:41)
[2021-06-20] MEDS: LORazepam 2 MG TAB PO PRN ×2 (07:55→16:56)
--- NOTE | 2021-06-20 09:50 | Progress Note ---
Subjective - Reason for Consult Consult date: 06/20/21 Reason for consult: SI - Chief Complaint Chief complaint: The patient was seen today. He says he is suicidal because he lost his sister a month ago and had a cousin "who blew his brain out." The patient says he has no family support. He says "I'm depressed and I still feel suicidal." He denies having a plan. The patient denies hallucinations. REVIEW OF SYSTEMS Constitutional: Negative for weight loss ENT: Negative for stridor Respiratory: Negative for cough or hemoptysis All other systems reviewed and are negative MENTAL STATUS EXAMINATION General Appearance and Behavior: Age appropriate, good hygiene, wearing appropriate clothes. calm, cooperative Cooperation: cooperative Psychomotor Behavior: Psychomotor normal Mood: Depressed Affect and affective range: congruent with stated mood, tearful Thought Process: goal directed Thought Content: Suicidal Speech: normal tone and pace Suicidal Ideation: Yes Homicidal Ideation: Denies Hallucinations: Denies Delusions: None elicited Impulse Control: Limited Insight and Judgment: Limited Memory: limited Attention: Attentive Orientation: alert and oriented Assessment and Plan (1) Bipolar Disorder (2) Alcohol Dependence Treatment Plan 1013 Increase Cymbalta 120mg po daily Continue CIWA Sitter: per primary Medical: per medical Disposition: Recommend acute psychiatric inpatient treatment Will follow. Thanks Case staffed with Dr. Gonzalez Mental Status Exam - Vital signs Last Vital Signs Temp 98.6 F 06/20/21 07:51 Pulse 93 H 06/20/21 07:51 Resp 18 06/20/21 07:51 BP 175/114 06/20/21 07:51 Pulse Ox 95 06/20/21 07:51
[2021-06-20] MEDS ORDERED: DULoxetine 30 MG CAP PO SCH ×2 (11:00→11:40)
--- NOTE | 2021-06-20 14:51 | Event Note ---
Date: 06/20/21 S: No major events reported overnight. Patient on CIWA protocol Vital Signs - 8 hr 06/20/21 06/20/21 07:51 11:21 Temperature 98.6 F 97.6 F Pulse Rate 93 H 89 Respiratory 18 18 Rate Blood Pressure 175/114 123/98 [Right] O2 Sat by Pulse 95 98 Oximetry A: Bipolar disorder, alcohol dependence P: Awaiting inpatient psych placement
[2021-06-20] MEDS ORDERED: LIDOCAINE (1%) 10 MG/1 ML VIAL 20 ML MDV INFILTRATI ONE (19:06)
--- NOTE | 2021-06-20 19:07 | XRay Report ---
LEFT HAND 3 VIEW(S) INDICATION / CLINICAL INFORMATION: Left thumb injury after fall COMPARISON: None available. FINDINGS: BONES / JOINT(S): Postsurgical change within the thumb distal metacarpal head. Focal flexion contract ure deformity involving IP joint which is fixed at 90 degrees flexion. No fracture visualized. No sig nificant arthritis. SOFT TISSUES: No significant abnormality. ADDITIONAL FINDINGS: None. Signer Name: Matt Ray MD Signed: 06/20/2021 7:03 PM Workstation Name: [id number]
[2021-06-20] MEDS ORDERED: HYDROmorphone 1 MG/1 ML INJ IM ONE (19:24)
--- NOTE | 2021-06-20 20:21 | XRay Report ---
LEFT HAND 3 VIEW(S) 7:53 PM INDICATION / CLINICAL INFORMATION: Status post reduction of thumb COMPARISON: 6:55 PM same day FINDINGS: BONES / JOINT(S): No acute fracture or subluxation. Recently noted thumb IP dislocation has been redu kian and is now noted in expected position. No fracture visualized No significant arthritis. SOFT TISSUES: No significant abnormality. ADDITIONAL FINDINGS: None. Signer Name: Matt Ray MD Signed: 06/20/2021 8:17 PM Workstation Name: [id number]
[2021-06-20 20:24] VITALS: BP 112/66
[2021-06-21] MEDS ORDERED: LORazepam 2 MG TAB ONE (02:06)
[2021-06-21] MEDS: LORazepam 2 MG TAB PO PRN (02:18)
[2021-06-21] MEDS ORDERED: DULoxetine 30 MG CAP PO SCH (10:00)
== END 2021-06-21 01:55 ==
LOC: EEVIPCON 17:24 → ED 17:24
DX: R45.851 Suicidal ideations (principal); Z88.8 Allergy status to other drugs, medicaments and biological substances; Z88.6 Allergy status to analgesic agent; F17.200 Nicotine dependence, unspecified, uncomplicated; I10 Essential (primary) hypertension; Z20.822 Contact with and (suspected) exposure to COVID-19
CPT/HCPCS: 36415; 73020; 73030; 80048; 80307; 81001; 85025; 99285; U0003; 80320; J3490; G0480; J1170; Q0162